=== PATIENT | male | born 1965 | race Caucasian/White ===

== ENCOUNTER 2019-11-06 09:49 | Inpatient (IN) ==
--- NOTE | 2019-11-06 11:46 | DR.EXTPAIN ---
HPI Time seen Time Seen by Provider: 11/06/19 11:44 PCP Primary Care Physician: JUDSON Complaint/Symptoms Chief Complaint Doctor Comments: A 54 y/o male presenting to the ED with c/o an abscess to his Lt. groin. This was first noticed 1 week ago. It came to a head and ruptured. He had been to urgent care centerand was placed on some antibiotics. The infection seen to be spreading over a large area now. Chief Complaint:: PT C/O RISEN TO HIS LT GROIN AREA. PT STATES HE WENT TO [facility] MONDAY AND WAS GIVEN PRESCRIPTIONS ANTIBIOTICS. PT WAS TOLD IF IT WAS NOT ANY BETTER IN A FEW DAYS THAT HE SHOULD BE SEEN AGAIN ABOUT IT. PT'S STATES THERE IS REDNESS AROUND IT. COVID-19 Coronavirus risk:travel/contact w/high risk person: No Has patient experienced Coronavirus symptoms: Yes Coronavirus symptoms experienced: Fever Nurses notes reviewed Nurses Notes Review: Yes Source History Provided: Patient Mode of arrival Mode of Arrival: Ambulatory Timing Onset of Chief Complaint: 11/01/19 Context History of: None Associated signs and symptoms Associated Signs and Symptoms: None PMH PMH Past Medical History: Yes Past Medical History: Diabetes Past Surgical History: No Family History History of Family Medical Conditions: No Social History Does patient currently use any type of tobacco product: Yes Have you used tobacco products in the last 12 months: Yes Type of Tobacco Use: Cigarettes Does any household member use tobacco: Yes Alcohol Use: None Do you use any recreational Drugs:: No Lives With: Spouse Lives Where: Home Travel Risk Coronavirus risk:travel/contact w/high risk person: No Has patient experienced Coronavirus symptoms: Yes Coronavirus symptoms experienced: Fever Infectious screening In the last 2 months have you had wt loss of >10#?: NO Have you had fever, night sweats or hemotysis?: No Have you traveled outside the country in the last 6 months?: No Isolation: Standard ROS Review of Systems Constitutional: No Symptoms Reported Eyes: No Symptoms Reported ENTM: No Symptoms Reported Respiratoy: No Symptoms Reported Cardiovascular: No Symptoms Reported Gastrointestinal/Abdominal: No Symptoms Reported Genitourinary: No Symptoms Reported Neurological: No Symptoms Reported Musculoskeletal: No Symptoms Reported Integumentary: Lesions (Lt. groin) Hematologic/Lymphatic: No Symptoms Reported Endocrine: No Symptoms Reported Psychiatric: No Symptoms Reported PE Vital Signs Vitals: Temperature 97.1 F Pulse Rate 111 Respiratory Rate 18 Blood Pressure 105/67 O2 Sat by Pulse Oximetry 97 General Limitations: No Limitations General Appearance: Alert and In No Apparent Distress Head Head Exam: Normal Inspection, Atraumatic and Normocephalic Eyes Eye exam: Normal Appearance and EOMI ENT ENT Exam: Normal Exam, Normal Oropharynx, Normal External Ear Exam and Mucous Membranes Moist Neck Neck Exam: Normal Inspection, Full ROM and Trachea Midline Chest Chest Inspection: Symmetric Chest Wall Rise Respiratory Respiratory Exam: Normal Lung Sounds Bilat Cardiovascular Cardiovascular Exam: Regular Rate, Normal Rhythm, Normal Heart Sounds, +S1 and +S2 Abdominal Exam Abdominal Exam: Normal Inspection, Normal Bowel Sounds and Soft Lower Extremities Hip/Pelvis Exam: Other (A large, fluctuant and erythematous area over the Lt. groin. There is a small open drainage site) Back Back Exam: Normal Inspection and Full ROM Neurological Neurological Exam: Alert and Oriented X3 Psychiatric Psychiatric Exam: Normal Affect and Normal Mood Skin Skin Exam: Other (Lt. groin findings as described above under the hip exam. ) COURSE Reevaluation 1st: Unchanged Education/Counseling Education/Counseling: Patient, Education and Counseling Educated On: Treatment, Diagnosis, Prognosis and Needs for Follow Up ROR Labs Reviewed Laboratory Results Reviewed?: Yes Result Diagrams: 11/06/19 12:45 11/06/19 12:45 Laboratory: WBC 17.8 X10^3/uL (3.6-10.0) H 11/06/19 12:45 RBC 5.38 X10^6/uL (4.7-6.0) 11/06/19 12:45 Hgb 16.6 g/dL (13.5-18.0) 11/06/19 12:45 Hct 48.7 % (42.0-54.0) 11/06/19 12:45 MCV 90.5 fL (80.0-100.0) 11/06/19 12:45 MCH 30.8 pg (27.0-34.0) 11/06/19 12:45 MCHC 34.0 g/dL (33.0-35.0) 11/06/19 12:45 RDW 13.5 % (11.6-16.5) 11/06/19 12:45 Plt Count 263 X10^3/uL (150.0-450.0) 11/06/19 12:45 MPV 9.1 fL (7.4-11.0) 11/06/19 12:45 Neut % (Auto) 79.1 % (42.0-75.0) H 11/06/19 12:45 Lymph % (Auto) 10.4 % (21.0-51.0) L 11/06/19 12:45 Bradley % (Auto) 9.6 % (0.0-13.0) 11/06/19 12:45 Eos % (Auto) 0.3 % (0.9-2.9) L 11/06/19 12:45 Baso % (Auto) 0.6 % (0.2-1.0) 11/06/19 12:45 Neut # (Auto) 14.1 x10^3/uL (2.2-4.8) H 11/06/19 12:45 Lymph # (Auto) 1.9 X10^3/uL (1.3-2.9) 11/06/19 12:45 Bradley # (Auto) 1.7 x10^3/uL (0.3-0.8) H 11/06/19 12:45 Eos # (Auto) 0.0 x10^3/uL (0.0-0.2) 11/06/19 12:45 Baso # (Auto) 0.1 X10^3/uL (0.0-0.1) 11/06/19 12:45 Absolute Nucleated RBC 0.0 /100WBC 11/06/19 12:45 Sodium 133 mmol/L (136-145) L 11/06/19 12:45 Corrected Sodium 139 mmol/L (136-145) 11/06/19 12:45 Potassium 4.1 mmol/L (3.5-5.1) 11/06/19 12:45 Chloride 97 mmol/L (98-107) L 11/06/19 12:45 Carbon Dioxide 27.2 mmol/L (21-32) 11/06/19 12:45 BUN 10 mg/dL (7-18) 11/06/19 12:45 Creatinine 0.76 mg/dL (0.70-1.30) 11/06/19 12:45 Est GFR (MDRD) Af Amer > 60 (>60) 11/06/19 12:45 Est GFR (MDRD) Non-Af > 60 (>60) 11/06/19 12:45 Glucose 337 mg/dL (65-99) H 11/06/19 12:45 Calcium 8.7 mg/dL (8.5-10.1) 11/06/19 12:45 Corrected Calcium 10.2 mg/dL (8.5-10.1) H 11/06/19 12:45 Total Bilirubin 0.40 mg/dL (0.2-1.0) 11/06/19 12:45 AST 24 Units/L (15-37) 11/06/19 12:45 ALT 28 Units/L (12-78) 11/06/19 12:45 Alkaline Phosphatase 133 Units/L (46-116) H 11/06/19 12:45 Total Protein 6.6 g/dL (6.4-8.2) 11/06/19 12:45 Albumin 2.1 g/dL (3.4-5.0) L 11/06/19 12:45 Globulin 4.5 g/dL (2.5-4.5) 11/06/19 12:45 Albumin/Globulin Ratio 0.5 Ratio (1.1-2.1) L 11/06/19 12:45 Opioid Opioid Risk Tool Age (Laith box if 16-45): No History of Preadolescent Sexual Abuse: No Total: 0 Total Score Risk Category: Low Risk Copyright: Eloy KINCAID predicting aberrant behaviors Diagnosis Discharge Problem: Abscess of groin, left Uncontrolled type 2 diabetes mellitus Qualifiers: Glycemic state: with hyperglycemia Qualified Code(s): E11.65 - Type 2 diabetes mellitus with hyperglycemia Instructions Forms: Excuse From Work Precautions for COVID19 Patient Portal Social Distancing
[2019-11-06] MEDS ORDERED: VANCOMYCIN IV *PREMIX 1 G/200 ML BAG 1 G/200 ML PIGGYBACK IV ONE (12:41)
[2019-11-06] MEDS ORDERED: NS 1000 ML 1,000 ML IV ONE (12:41)
[2019-11-06] MEDS ORDERED: NS 1000 ML 1,000 ML ONE (12:52)
[2019-11-06] MEDS ORDERED: NS 250 ML IV 250 ML IV ONE (12:52)
[2019-11-06] MEDS ORDERED: VANCOMYCIN HCL ONE ×2 (12:52→20:25)
[2019-11-06 12:55] LABS: BASOPHILS # (AUTO) 0.1 X10^3/uL (0.0-0.1); BASOPHILS % (AUTO) 0.6 % (0.2-1.0); EOSINOPHILS % (AUTO) 0.3 % (0.9-2.9); HEMATOCRIT 48.7 % (42.0-54.0); HEMOGLOBIN 16.6 g/dL (13.5-18.0); LYMPHOCYTES # (AUTO) 1.9 X10^3/uL (1.3-2.9); LYMPHOCYTES % (AUTO) 10.4 % (21.0-51.0); MEAN CORPUSCULAR HEMOGLOBIN 30.8 pg (27.0-34.0); MEAN CORPUSCULAR VOLUME 90.5 fL (80.0-100.0); MEAN PLATELET VOLUME 9.1 fL (7.4-11.0); MONOCYTES # (AUTO) 1.7 x10^3/uL (0.3-0.8); MONOCYTES % (AUTO) 9.6 % (0.0-13.0); NEUTROPHILS # (AUTO) 14.1 x10^3/uL (2.2-4.8); NEUTROPHILS % (AUTO) 79.1 % (42.0-75.0); PLATELET COUNT 263 X10^3/uL (150.0-450.0); RED BLOOD COUNT 5.38 X10^6/uL (4.7-6.0); RED CELL DISTRIBUTION WIDTH 13.5 % (11.6-16.5); WHITE BLOOD COUNT 17.8 X10^3/uL (3.6-10.0)
[2019-11-06 13:05] LABS: ALANINE AMINOTRANSFERASE 28 Units/L (12-78); ALBUMIN 2.1 g/dL (3.4-5.0); ALKALINE PHOSPHATASE 133 Units/L (46-116); ASPARTATE AMINO TRANSFERASE 24 Units/L (15-37); BLOOD UREA NITROGEN 10 mg/dL (7-18); CALCIUM 8.7 mg/dL (8.5-10.1); CARBON DIOXIDE 27.2 mmol/L (21-32); CHLORIDE 97 mmol/L (98-107); COR CA(FOR HYPOALB) 10.2 mg/dL (8.5-10.1); COR NA(FOR HYPERGLY) 139 mmol/L (136-145); CREATININE 0.76 mg/dL (0.70-1.30); SODIUM 133 mmol/L (136-145); TOTAL PROTEIN 6.6 g/dL (6.4-8.2); eGFR NON BLACK RACES > 60 (>60)
[2019-11-06] MEDS ORDERED: PHARMACY CONSULT - VANCOMYCIN XX SCH (18:26)
[2019-11-06] MEDS ORDERED: GLUCOPHAGE ONE (20:25)
[2019-11-06] MEDS ORDERED: VANCOMYCIN 1 GRAM PREMIX (ADDVANTAGE) 250 ML IV ONE (20:26)
[2019-11-06] MEDS: GLUCOPHAGE PO SCH ×2 (20:31→21:05)
[2019-11-06] MEDS: NS 1000 ML 1,000 ML IV SCH (20:32)
[2019-11-06] MEDS: VANCOMYCIN HCL 250 MG, VANCOMYCIN HCL 1 G in NS 250 ML IV 250 ML IV SCH (21:06)
[2019-11-07] MEDS: NS 1000 ML 1,000 ML IV SCH ×3 (05:47→19:01)
[2019-11-07] MEDS: VANCOMYCIN HCL 250 MG, VANCOMYCIN HCL 1 G in NS 250 ML IV 250 ML IV SCH (05:47)
[2019-11-07 06:06] LABS: ALANINE AMINOTRANSFERASE 29 Units/L (12-78); ALBUMIN 1.8 g/dL (3.4-5.0); ALKALINE PHOSPHATASE 113 Units/L (46-116); ASPARTATE AMINO TRANSFERASE 27 Units/L (15-37); BLOOD UREA NITROGEN 10 mg/dL (7-18); CALCIUM 8.4 mg/dL (8.5-10.1); CARBON DIOXIDE 22.8 mmol/L (21-32); CHLORIDE 99 mmol/L (98-107); COR CA(FOR HYPOALB) 10.2 mg/dL (8.5-10.1); COR NA(FOR HYPERGLY) 136 mmol/L (136-145); SODIUM 134 mmol/L (136-145); TOTAL PROTEIN 5.9 g/dL (6.4-8.2); eGFR NON BLACK RACES > 60 (>60)
[2019-11-07 06:15] LABS: BASOPHILS # (AUTO) 0.2 X10^3/uL (0.0-0.1); BASOPHILS % (AUTO) 1.3 % (0.2-1.0); EOSINOPHILS # (AUTO) 0.2 x10^3/uL (0.0-0.2); EOSINOPHILS % (AUTO) 1.1 % (0.9-2.9); HEMATOCRIT 44.3 % (42.0-54.0); HEMOGLOBIN 14.9 g/dL (13.5-18.0); LYMPHOCYTES # (AUTO) 2.3 X10^3/uL (1.3-2.9); LYMPHOCYTES % (AUTO) 17.4 % (21.0-51.0); MEAN CORPUSCULAR HEMOGLOBIN 30.8 pg (27.0-34.0); MEAN CORPUSCULAR HGB CONC 33.6 g/dL (33.0-35.0); MEAN CORPUSCULAR VOLUME 91.5 fL (80.0-100.0); MEAN PLATELET VOLUME 9.1 fL (7.4-11.0); MONOCYTES % (AUTO) 7.9 % (0.0-13.0); NEUTROPHILS # (AUTO) 9.6 x10^3/uL (2.2-4.8); NEUTROPHILS % (AUTO) 72.3 % (42.0-75.0); PLATELET COUNT 281 X10^3/uL (150.0-450.0); RED BLOOD COUNT 4.84 X10^6/uL (4.7-6.0); RED CELL DISTRIBUTION WIDTH 13.4 % (11.6-16.5); WHITE BLOOD COUNT 13.3 X10^3/uL (3.6-10.0)
--- NOTE | 2019-11-07 08:48 | DR.H&P ---
H&P History & Physical for Day of: H&P Date: 11/07/19 Chief Complaint Chief Complaint: left groin pain and swelling Allergies Allergies Allergy/AdvReac Type Severity Reaction Status Date / Time No Known Drug Allergies Allergy Verified 11/06/19 10:03 History of Present Illness History of Present Illness: Mr. Gong is a 54 y/o male with a PMH of uncontrolled DM presented with left groin pain and swelling. Patient states he noticed it a week ago and went to [facility] urgent care and he was given Bactrim. He states the pain and swelling kept getting worse so he presented to the ED yesterday. He has not been on any medicines for diabetes recently. He use d to be on metformin and gabapentin but stopped taking them. He does not have a PCP. Denies fever or chills, no N/V/D. He has had skin infections in the past, resolved with oral antibiotics. Er work-up - Labs: WBC: 17 now 13 Glucose: 337 Dr. Rivera was consulted for I&D due to increased left groin redness and swelling. I&D was performed and cultures were sent. He was started on IV vancomycin. He also received regular insulin. Plan: continue IV vancomycin, follow Dr. Rivera's recommendations, follow cultures. Patient was started back on metformin 500mg BID. He refused to have his FS checked last night and did not receive any SSI. Patient does not want to take insulin. Will increase metformin to 1000 mg BID. Will discuss further management with patient since his A1C is > 16%. Past Medical History Past Medical History: Diabetes Past Surgical History Surgical History: Other Family History Family Medical History: Diabetes Mellitus and Cancer Social History Does patient currently use any type of tobacco product: Yes Have you used tobacco products in the last 12 months: Yes Type of Tobacco Use: Cigarettes Does any household member use tobacco: Yes Alcohol Use: None Drug Use: None Prescription drug monitoring program results: PDMP reviewed and no concerns identified Medications Home Medications: No Known Drug Allergies Allergy (Verified 11/06/19 10:03) CONTINUE taking the following medications sulfamethoxazole-trimethoprim 1 tab PO BID 11/06/19 [History] Labs Result Diagrams: 11/07/19 05:10 11/07/19 13:45 Labs: Laboratory WBC 13.3 X10^3/uL (3.6-10.0) H 11/07/19 05:10 RBC 4.84 X10^6/uL (4.7-6.0) 11/07/19 05:10 Hgb 14.9 g/dL (13.5-18.0) 11/07/19 05:10 Hct 44.3 % (42.0-54.0) 11/07/19 05:10 MCV 91.5 fL (80.0-100.0) 11/07/19 05:10 MCH 30.8 pg (27.0-34.0) 11/07/19 05:10 MCHC 33.6 g/dL (33.0-35.0) 11/07/19 05:10 RDW 13.4 % (11.6-16.5) 11/07/19 05:10 Plt Count 281 X10^3/uL (150.0-450.0) 11/07/19 05:10 MPV 9.1 fL (7.4-11.0) 11/07/19 05:10 Neut % (Auto) 72.3 % (42.0-75.0) 11/07/19 05:10 Lymph % (Auto) 17.4 % (21.0-51.0) L 11/07/19 05:10 Kidder % (Auto) 7.9 % (0.0-13.0) 11/07/19 05:10 Eos % (Auto) 1.1 % (0.9-2.9) 11/07/19 05:10 Baso % (Auto) 1.3 % (0.2-1.0) H 11/07/19 05:10 Neut # (Auto) 9.6 x10^3/uL (2.2-4.8) H 11/07/19 05:10 Lymph # (Auto) 2.3 X10^3/uL (1.3-2.9) 11/07/19 05:10 Kidder # (Auto) 1.0 x10^3/uL (0.3-0.8) H 11/07/19 05:10 Eos # (Auto) 0.2 x10^3/uL (0.0-0.2) 11/07/19 05:10 Baso # (Auto) 0.2 X10^3/uL (0.0-0.1) H 11/07/19 05:10 Absolute Nucleated RBC 0.0 /100WBC 11/07/19 05:10 Sodium 134 mmol/L (136-145) L 11/07/19 05:10 Corrected Sodium 136 mmol/L (136-145) 11/07/19 05:10 Potassium 3.8 mmol/L (3.5-5.1) 11/07/19 05:10 Chloride 99 mmol/L (98-107) 11/07/19 05:10 Carbon Dioxide 22.8 mmol/L (21-32) 11/07/19 05:10 BUN 10 mg/dL (7-18) 11/07/19 05:10 Creatinine 0.60 mg/dL (0.70-1.30) L 11/07/19 05:10 Est GFR (MDRD) Af Amer > 60 (>60) 11/07/19 05:10 Est GFR (MDRD) Non-Af > 60 (>60) 11/07/19 05:10 Glucose 197 mg/dL (65-99) H 11/07/19 05:10 POC Glucose (mg/dL) 250 mg/dL (65-99) H 11/07/19 05:26 Calcium 8.4 mg/dL (8.5-10.1) L 11/07/19 05:10 Corrected Calcium 10.2 mg/dL (8.5-10.1) H 11/07/19 05:10 Total Bilirubin 0.40 mg/dL (0.2-1.0) 11/07/19 05:10 AST 27 Units/L (15-37) 11/07/19 05:10 ALT 29 Units/L (12-78) 11/07/19 05:10 Alkaline Phosphatase 113 Units/L (46-116) 11/07/19 05:10 Total Protein 5.9 g/dL (6.4-8.2) L 11/07/19 05:10 Albumin 1.8 g/dL (3.4-5.0) L 11/07/19 05:10 Globulin 4.1 g/dL (2.5-4.5) 11/07/19 05:10 Albumin/Globulin Ratio 0.4 Ratio (1.1-2.1) L 11/07/19 05:10 Review of Systems Constitutional: Chills Eyes: No Symptoms Reported ENT: No Symptoms Reported Respiratory: No Symptoms Reported Cardiovascular: No Symptoms Reported Gastrointestinal: No Symptoms Reported Genitourinary: No Symptoms Reported Musculoskeletal: Leg Pain Skin: Wound Neurological: No Symptoms Reported Physical Exam Vital Signs: Temperature 98.3 F Pulse Rate [Left Brachial] 90 Pulse Rate 111 Respiratory Rate 20 Blood Pressure [Left Arm] 119/71 Blood Pressure 105/67 O2 Sat by Pulse Oximetry 94 Oriented: Normal Eyes: Normal Ear: Normal Nose: Normal Respiratory: Clear Throughout Cardiovascular: Normal Auscultation: Bowel Sounds: Normal Palpation: Normal Tenderness: Normal Skin: Wound and Other (left groin area, dressing with drainage noted ) Musculoskeletal: Normal Psychiatric: Normal Mood Description: Calm Affect: Normal Speech Pattern: Clear and Appropriate Assessment/Plan (1) Abscess of groin, left: Status: Acute (2) Uncontrolled type 2 diabetes mellitus: Qualifiers: Glycemic state: with hyperglycemia Qualified Code(s): E11.65 - Type 2 diabetes mellitus with hyperglycemia Status: Acute Review H&P Reviewed: Yes Patient was examined?: Yes
[2019-11-07] MEDS ORDERED: GLUCOPHAGE ONE ×2 (09:08→17:48)
[2019-11-07] MEDS: GLUCOPHAGE PO SCH ×2 (09:10→17:35)
[2019-11-07] MEDS ORDERED: PHARMACY COMMENT IV SCH (13:15)
[2019-11-07] MEDS: HumuLIN R SC PRN ×2 (13:40→17:35)
[2019-11-07 14:14] LABS: CREATININE 0.61 mg/dL (0.70-1.30); VANCOMYCIN,TROUGH 8.4 ug/mL (15-20)
[2019-11-07] MEDS: VANCOMYCIN HCL 500 MG, VANCOMYCIN HCL 1 G in D5W 250 ML IV 250 ML IV SCH ×2 (14:48→22:25)
[2019-11-07] MEDS: NORCO 5/325 MG TAB PO PRN ×2 (14:49→19:40)
[2019-11-07] MEDS ORDERED: VANCOMYCIN HCL ONE (22:13)
[2019-11-08] MEDS: NS 1000 ML 1,000 ML IV SCH ×3 (02:58→21:04)
[2019-11-08] MEDS: VANCOMYCIN HCL 500 MG, VANCOMYCIN HCL 1 G in D5W 250 ML IV 250 ML IV SCH ×3 (05:41→23:50)
[2019-11-08 06:04] LABS: BLOOD UREA NITROGEN 8 mg/dL (7-18); CALCIUM 8.1 mg/dL (8.5-10.1); CARBON DIOXIDE 26.7 mmol/L (21-32); CHLORIDE 99 mmol/L (98-107); COR NA(FOR HYPERGLY) 136 mmol/L (136-145); CREATININE 0.59 mg/dL (0.70-1.30); SODIUM 134 mmol/L (136-145); eGFR NON BLACK RACES > 60 (>60)
[2019-11-08 06:09] LABS: BASOPHILS # (AUTO) 0.1 X10^3/uL (0.0-0.1); BASOPHILS % (AUTO) 0.6 % (0.2-1.0); EOSINOPHILS # (AUTO) 0.3 x10^3/uL (0.0-0.2); EOSINOPHILS % (AUTO) 2.5 % (0.9-2.9); HEMATOCRIT 40.7 % (42.0-54.0); HEMOGLOBIN 13.6 g/dL (13.5-18.0); LYMPHOCYTES # (AUTO) 1.8 X10^3/uL (1.3-2.9); LYMPHOCYTES % (AUTO) 16.3 % (21.0-51.0); MEAN CORPUSCULAR HEMOGLOBIN 30.4 pg (27.0-34.0); MEAN CORPUSCULAR HGB CONC 33.5 g/dL (33.0-35.0); MEAN CORPUSCULAR VOLUME 90.8 fL (80.0-100.0); MEAN PLATELET VOLUME 8.5 fL (7.4-11.0); MONOCYTES # (AUTO) 1.1 x10^3/uL (0.3-0.8); MONOCYTES % (AUTO) 10.1 % (0.0-13.0); NEUTROPHILS # (AUTO) 7.9 x10^3/uL (2.2-4.8); NEUTROPHILS % (AUTO) 70.5 % (42.0-75.0); PLATELET COUNT 300 X10^3/uL (150.0-450.0); RED BLOOD COUNT 4.48 X10^6/uL (4.7-6.0); RED CELL DISTRIBUTION WIDTH 13.4 % (11.6-16.5); WHITE BLOOD COUNT 11.2 X10^3/uL (3.6-10.0)
[2019-11-08] MEDS: GLUCOPHAGE PO SCH ×2 (06:47→17:22)
[2019-11-08] MEDS ORDERED: GLUCOPHAGE ONE ×2 (06:49→16:10)
--- NOTE | 2019-11-08 08:48 | PCM.PROG ---
Progress Note Progress Note for Day of Date of Exam: 11/08/19 Subjective Subjective: Patient seen at bedside, reports feeling slightly better. Left groin abscess is still draining a bit, pain is somewhat controlled. Denies fever or chills, no N/V/D. Labs: Wound Cx-Gram positive cocci, blood cultures negative WBC trending down to 11.3 Glucose: 185 Plan: continue IV Vancomycin, follow Dr. Rivera's recommendations, continue wound care. Will increase Bethany to 10/325mg q4hr prn. Continue IV fluids. Continue metformin 1000 mg BID, SSI, start Levemir 10 units qHS and volumetric weigher consult. It was discussed in detail that's patient's A1C is elevated. He is willing to try the insulin regimen along with metformin. Patient does work nights and only eats 1 meal a day on most days. He is willing to make lifestyle changes to make sure he is able to eat proper meals and administer insulin while at work. Past Medical Family Social History Past Med/Fam/Surg Hx: No changes since H&P Allergies: Allergies No Known Drug Allergies Allergy (Verified 11/06/19 10:03) Review of Systems ROS: No change since H&P Vital Signs and I&O's Vital Signs: Temperature 98.3 F Pulse Rate [Left Brachial] 94 Pulse Rate 111 Respiratory Rate 20 Blood Pressure [Left Arm] 132/84 Blood Pressure 105/67 O2 Sat by Pulse Oximetry 93 Intake and Output: Intake & Output 11/05/19 11/06/19 11/07/19 11/08/19 23:59 23:59 23:59 23:59 Intake Total 800 / 800 3226 / 3226 222 / 222 Output Total 200 / 200 Balance 800 / 800 3226 / 3226 Physical Exam Oriented: Normal Eyes: Normal Ear: Normal Nose: Normal Respiratory: Normal Cardiovascular: Normal Auscultation: Bowel Sounds: Normal Tenderness: Normal Skin: Wound and Other (left groin area, dressing with drainage noted ) Musculoskeletal: Normal Psychiatric: Normal Mood Description: Calm Affect: Normal Speech Pattern: Clear and Appropriate Laboratory and Diagnostics Result Diagrams: 11/08/19 05:20 11/08/19 05:20 Labs: 11/06/19 12:21 Groin Wound Culture - Preliminary 11/06/19 14:24 Blood Blood Culture - Preliminary 11/06/19 14:18 Blood Blood Culture - Preliminary Laboratory WBC 11.2 X10^3/uL (3.6-10.0) H 11/08/19 05:20 RBC 4.48 X10^6/uL (4.7-6.0) L 11/08/19 05:20 Hgb 13.6 g/dL (13.5-18.0) 11/08/19 05:20 Hct 40.7 % (42.0-54.0) L 11/08/19 05:20 MCV 90.8 fL (80.0-100.0) 11/08/19 05:20 MCH 30.4 pg (27.0-34.0) 11/08/19 05:20 MCHC 33.5 g/dL (33.0-35.0) 11/08/19 05:20 RDW 13.4 % (11.6-16.5) 11/08/19 05:20 Plt Count 300 X10^3/uL (150.0-450.0) 11/08/19 05:20 MPV 8.5 fL (7.4-11.0) 11/08/19 05:20 Neut % (Auto) 70.5 % (42.0-75.0) 11/08/19 05:20 Lymph % (Auto) 16.3 % (21.0-51.0) L 11/08/19 05:20 Love % (Auto) 10.1 % (0.0-13.0) 11/08/19 05:20 Eos % (Auto) 2.5 % (0.9-2.9) 11/08/19 05:20 Baso % (Auto) 0.6 % (0.2-1.0) 11/08/19 05:20 Neut # (Auto) 7.9 x10^3/uL (2.2-4.8) H 11/08/19 05:20 Lymph # (Auto) 1.8 X10^3/uL (1.3-2.9) 11/08/19 05:20 Love # (Auto) 1.1 x10^3/uL (0.3-0.8) H 11/08/19 05:20 Eos # (Auto) 0.3 x10^3/uL (0.0-0.2) H 11/08/19 05:20 Baso # (Auto) 0.1 X10^3/uL (0.0-0.1) 11/08/19 05:20 Absolute Nucleated RBC 0.0 /100WBC 11/08/19 05:20 Sodium 134 mmol/L (136-145) L 11/08/19 05:20 Corrected Sodium 136 mmol/L (136-145) 11/08/19 05:20 Potassium 3.8 mmol/L (3.5-5.1) 11/08/19 05:20 Chloride 99 mmol/L (98-107) 11/08/19 05:20 Carbon Dioxide 26.7 mmol/L (21-32) 11/08/19 05:20 BUN 8 mg/dL (7-18) 11/08/19 05:20 Creatinine 0.59 mg/dL (0.70-1.30) L 11/08/19 05:20 Est GFR (MDRD) Af Amer > 60 (>60) 11/08/19 05:20 Est GFR (MDRD) Non-Af > 60 (>60) 11/08/19 05:20 Glucose 185 mg/dL (65-99) H 11/08/19 05:20 POC Glucose (mg/dL) 176 mg/dL (65-99) H 11/08/19 05:53 Hemoglobin A1c > 16.0 % 11/07/19 05:10 Calcium 8.1 mg/dL (8.5-10.1) L 11/08/19 05:20 Corrected Calcium 10.2 mg/dL (8.5-10.1) H 11/07/19 05:10 Total Bilirubin 0.40 mg/dL (0.2-1.0) 11/07/19 05:10 AST 27 Units/L (15-37) 11/07/19 05:10 ALT 29 Units/L (12-78) 11/07/19 05:10 Alkaline Phosphatase 113 Units/L (46-116) 11/07/19 05:10 Total Protein 5.9 g/dL (6.4-8.2) L 11/07/19 05:10 Albumin 1.8 g/dL (3.4-5.0) L 11/07/19 05:10 Globulin 4.1 g/dL (2.5-4.5) 11/07/19 05:10 Albumin/Globulin Ratio 0.4 Ratio (1.1-2.1) L 11/07/19 05:10 Vancomycin Trough 8.4 ug/mL (15-20) L 11/07/19 13:45 Plan (1) Abscess of groin, left: Status: Acute (2) Uncontrolled type 2 diabetes mellitus: Status: Acute Qualifiers: Glycemic state: with hyperglycemia Qualified Code(s): E11.65 - Type 2 diabetes mellitus with hyperglycemia
[2019-11-08] MEDS ORDERED: STERILE WATER IRRIGATION IR ONE ×2 (10:12→10:14)
[2019-11-08] MEDS ORDERED: HYDROGEN PEROXIDE 3% ONE (10:14)
[2019-11-08] MEDS: HumuLIN R SC PRN (12:10)
[2019-11-08] MEDS ORDERED: PHARMACY COMMENT IV NR (13:30)
[2019-11-08] MEDS: NEURONTIN CAP 100 MG PO SCH ×2 (16:00→21:04)
[2019-11-08] MEDS: NORCO 5/325 MG TAB PO PRN (17:21)
[2019-11-08 17:45] LABS: CREATININE 0.59 mg/dL (0.70-1.30); VANCOMYCIN,TROUGH 7.5 ug/mL (15-20)
[2019-11-08 18:04] VITALS: BMI 28.8
[2019-11-08] MEDS: SNACK - Diabetic Appropriate PO SCH (21:04)
[2019-11-08] MEDS: LEVEMIR SC SCH (21:15)
[2019-11-09] MEDS: NORCO 5/325 MG TAB PO PRN ×2 (04:07→09:34)
[2019-11-09] MEDS: NS 1000 ML 1,000 ML IV SCH ×4 (04:09→18:29)
[2019-11-09] MEDS ORDERED: GLUCOPHAGE ONE ×2 (05:02→16:27)
[2019-11-09] MEDS: VANCOMYCIN HCL 500 MG, VANCOMYCIN HCL 1 G in D5W 250 ML IV 250 ML IV SCH (05:43)
[2019-11-09] MEDS: GLUCOPHAGE PO SCH ×2 (06:30→16:35)
[2019-11-09] MEDS: HumuLIN R SC PRN ×4 (06:32→21:15)
[2019-11-09 06:49] LABS: BLOOD UREA NITROGEN 4 mg/dL (7-18); CALCIUM 8.1 mg/dL (8.5-10.1); CARBON DIOXIDE 26.5 mmol/L (21-32); CHLORIDE 100 mmol/L (98-107); COR NA(FOR HYPERGLY) 138 mmol/L (136-145); SODIUM 136 mmol/L (136-145); eGFR NON BLACK RACES > 60 (>60)
[2019-11-09 06:51] LABS: BASOPHILS # (AUTO) 0.1 X10^3/uL (0.0-0.1); BASOPHILS % (AUTO) 0.5 % (0.2-1.0); EOSINOPHILS # (AUTO) 0.3 x10^3/uL (0.0-0.2); EOSINOPHILS % (AUTO) 2.1 % (0.9-2.9); HEMATOCRIT 40.9 % (42.0-54.0); HEMOGLOBIN 13.6 g/dL (13.5-18.0); LYMPHOCYTES # (AUTO) 1.5 X10^3/uL (1.3-2.9); LYMPHOCYTES % (AUTO) 12.8 % (21.0-51.0); MEAN CORPUSCULAR HEMOGLOBIN 30.4 pg (27.0-34.0); MEAN CORPUSCULAR HGB CONC 33.3 g/dL (33.0-35.0); MEAN CORPUSCULAR VOLUME 91.2 fL (80.0-100.0); MEAN PLATELET VOLUME 8.5 fL (7.4-11.0); MONOCYTES % (AUTO) 8.4 % (0.0-13.0); NEUTROPHILS % (AUTO) 76.2 % (42.0-75.0); PLATELET COUNT 318 X10^3/uL (150.0-450.0); RED BLOOD COUNT 4.48 X10^6/uL (4.7-6.0); RED CELL DISTRIBUTION WIDTH 13.1 % (11.6-16.5); WHITE BLOOD COUNT 11.9 X10^3/uL (3.6-10.0)
[2019-11-09] MEDS ORDERED: VANCOMYCIN HCL IV SCH ×6 (09:30→14:00)
[2019-11-09] MEDS ORDERED: NS IV SCH ×6 (09:30→14:00)
[2019-11-09] MEDS: NEURONTIN CAP 100 MG PO SCH ×2 (09:33→21:03)
--- NOTE | 2019-11-09 10:27 | DR.PROGNOT ---
Hospital Progress Notes - Progress Note for Day of: Progress Note Date: 11/09/19 - Chief Complaint Chief Complaint: feeling better with less drainage and less pain . packing was changed . initial culture is Gram + Cocci. BS is 190 this am . afebrile - Past Medical Family Social History Past Med/Fam/Surg Hx: No changes since H&P Allergies: Allergies No Known Drug Allergies Allergy (Verified 11/06/19 10:03) - Review Of Systems ROS: No change since H&P - Vital Signs Vital Signs: Temperature 98.3 F Pulse Rate [Left Brachial] 82 Pulse Rate 111 Respiratory Rate 19 Blood Pressure [Left Arm] 118/60 Blood Pressure 105/67 O2 Sat by Pulse Oximetry 96 - Physical Exam Oriented: Normal Eyes: Normal Ear: Normal Nose: Normal Respiratory: Normal Cardiovascular: Normal GI:Auscultation: Normal GI:Palpation: Normal GI: Tenderness: Normal Skin: Wound, Other (still has large area of erythema lateral groin with less edema ) Musculoskeletal: Normal Psychiatric: Normal Mood Description: Calm Affect: Normal Speech Pattern: Clear, Appropriate - Laboratory and Diagnostics Result Diagrams: 11/09/19 06:05 11/09/19 06:05 Labs: 11/06/19 12:21 Groin Wound Culture - Preliminary 11/06/19 14:24 Blood Blood Culture - Preliminary 11/06/19 14:18 Blood Blood Culture - Preliminary Laboratory WBC 11.9 X10^3/uL (3.6-10.0) H 11/09/19 06:05 RBC 4.48 X10^6/uL (4.7-6.0) L 11/09/19 06:05 Hgb 13.6 g/dL (13.5-18.0) 11/09/19 06:05 Hct 40.9 % (42.0-54.0) L 11/09/19 06:05 MCV 91.2 fL (80.0-100.0) 11/09/19 06:05 MCH 30.4 pg (27.0-34.0) 11/09/19 06:05 MCHC 33.3 g/dL (33.0-35.0) 11/09/19 06:05 RDW 13.1 % (11.6-16.5) 11/09/19 06:05 Plt Count 318 X10^3/uL (150.0-450.0) 11/09/19 06:05 MPV 8.5 fL (7.4-11.0) 11/09/19 06:05 Neut % (Auto) 76.2 % (42.0-75.0) H 11/09/19 06:05 Lymph % (Auto) 12.8 % (21.0-51.0) L 11/09/19 06:05 Beadle % (Auto) 8.4 % (0.0-13.0) 11/09/19 06:05 Eos % (Auto) 2.1 % (0.9-2.9) 11/09/19 06:05 Baso % (Auto) 0.5 % (0.2-1.0) 11/09/19 06:05 Neut # (Auto) 9.0 x10^3/uL (2.2-4.8) H 11/09/19 06:05 Lymph # (Auto) 1.5 X10^3/uL (1.3-2.9) 11/09/19 06:05 Beadle # (Auto) 1.0 x10^3/uL (0.3-0.8) H 11/09/19 06:05 Eos # (Auto) 0.3 x10^3/uL (0.0-0.2) H 11/09/19 06:05 Baso # (Auto) 0.1 X10^3/uL (0.0-0.1) 11/09/19 06:05 Absolute Nucleated RBC 0.0 /100WBC 11/09/19 06:05 Sodium 136 mmol/L (136-145) 11/09/19 06:05 Corrected Sodium 138 mmol/L (136-145) 11/09/19 06:05 Potassium 3.6 mmol/L (3.5-5.1) 11/09/19 06:05 Chloride 100 mmol/L (98-107) 11/09/19 06:05 Carbon Dioxide 26.5 mmol/L (21-32) 11/09/19 06:05 BUN 4 mg/dL (7-18) L 11/09/19 06:05 Creatinine 0.50 mg/dL (0.70-1.30) L 11/09/19 06:05 Est GFR (MDRD) Af Amer > 60 (>60) 08/22/20 06:05 Est GFR (MDRD) Non-Af > 60 (>60) 11/09/19 06:05 Glucose 190 mg/dL (65-99) H 11/09/19 06:05 POC Glucose (mg/dL) 183 mg/dL (65-99) H 11/09/19 05:30 Hemoglobin A1c > 16.0 % 11/07/19 05:10 Calcium 8.1 mg/dL (8.5-10.1) L 11/09/19 06:05 Corrected Calcium 10.2 mg/dL (8.5-10.1) H 11/07/19 05:10 Total Bilirubin 0.40 mg/dL (0.2-1.0) 11/07/19 05:10 AST 27 Units/L (15-37) 11/07/19 05:10 ALT 29 Units/L (12-78) 11/07/19 05:10 Alkaline Phosphatase 113 Units/L (46-116) 11/07/19 05:10 Total Protein 5.9 g/dL (6.4-8.2) L 11/07/19 05:10 Albumin 1.8 g/dL (3.4-5.0) L 11/07/19 05:10 Globulin 4.1 g/dL (2.5-4.5) 11/07/19 05:10 Albumin/Globulin Ratio 0.4 Ratio (1.1-2.1) L 11/07/19 05:10 Vancomycin Trough 7.5 ug/mL (15-20) L 11/08/19 16:56 - Assessment and Plan 1: large abscess Lt groin ,S/P I&D with packing . DM poorly controlled at home . same local care with irrigation and packing . IV Vancomycin. diabetic control . - Problem Patient Problems: Patient Problems Abscess of groin, left (Acute) L02.214 Uncontrolled type 2 diabetes mellitus (Acute) E11.65
--- NOTE | 2019-11-09 11:46 | PCM.PROG ---
Progress Note - Progress Note for Day of Date of Exam: 11/09/19 - Subjective Subjective: IN A 54 YEAR OLD PATIENT OF AND . HE IS BEING TREATED FOR A GROIN ABSCESS AND UNCONTROLLED DIABETES. PERFORMED AN I&D ON 11/05 AND PACKED WOUND WITH IODIFORM. TODAY, HE IS ALERT AND OREINTED, LYING IN BED ON MORNING ROUNDS. HE REPORTS PAIN AND SWELLING TO THE GROIN, OTHERWISE, DENIES COMPLAINTS. ON EXAMINATION, HEART IS REGULAR IN RATE AND RHYTHM. BILATERAL LUNGS ARE NOTED WITH DIMINISHED LUNG SOUNDS THROUGHOUT. ABDOMEN IS ROUND, SOFT, AND NON-TENDER WITH NORMAL BOWEL SOUNDS NOTED IN ALL QUADRANTS. LEFT GROIN IS NOTED WITH ERYTHEMA AND EDEMA. HIS VITALS THIS MORNING ARE: 98.3-82-18-96%-118/60. LABS WERE OBTAINED. ABNORMAL LAB VALUES INCLUDE THE FOLLOWING: WBC 11.9, RBC 4.48, HCT 40.9, BUN 4, CREATININE 0.50, GLUCOSE 190, CALCIUM 8.1. BLOOD AND WOUND CULTURES ARE PENDING. HE IS CURRENTLY RECEIVING NS AT 125 ML/HR, VANCOMYCIN 1G IV TID, NORCO 5/325 2 TABS PO Q4H PRN, LEVEMIR 10 UNITS SC HS, HUMULIN R SLIDING SCALE, METFORMIN 1G PO BID. WE WILL CONTINUE WITH CURRENT PLAN OF CARE AND WOUND CARE TODAY. OTHERWISE, WE WILL FOLLOW UP WITH AM LABS AND CONTINUE TO MONITOR. - Past Medical Family Social History Past Med/Fam/Surg Hx: No changes since H&P Allergies: Allergies No Known Drug Allergies Allergy (Verified 11/06/19 10:03) - Review of Systems ROS: No change since H&P - Vital Signs and I&O's Vital Signs: Temperature 98.3 F Pulse Rate [Left Brachial] 82 Pulse Rate 111 Respiratory Rate 20 Blood Pressure [Left Arm] 118/60 Blood Pressure 105/67 O2 Sat by Pulse Oximetry 96 Intake and Output: Intake & Output 11/06/19 11/07/19 11/08/19 11/09/19 11:59 11:59 11:59 11:59 Intake Total 1704 / 1704 2544 / 2544 4023 / 4023 Output Total 200 / 200 Balance 1704 / 1704 2344 / 2344 4023 / 4023 - Physical Exam Oriented: Normal Eyes: Normal Ear: Normal Nose: Normal Respiratory: Normal Cardiovascular: Normal : Normal Auscultation: Bowel Sounds: Normal Palpation: Normal Tenderness: Normal Skin: Wound, Other (still has large area of erythema lateral groin with edema ) Musculoskeletal: Normal Psychiatric: Normal Mood Description: Calm Affect: Normal Speech Pattern: Clear, Appropriate - Laboratory and Diagnostics Result Diagrams: 11/09/19 06:05 11/09/19 06:05 Labs: 11/06/19 12:21 Groin Wound Culture - Preliminary 11/06/19 14:24 Blood Blood Culture - Preliminary 11/06/19 14:18 Blood Blood Culture - Preliminary Laboratory WBC 11.9 X10^3/uL (3.6-10.0) H 11/09/19 06:05 RBC 4.48 X10^6/uL (4.7-6.0) L 11/09/19 06:05 Hgb 13.6 g/dL (13.5-18.0) 11/09/19 06:05 Hct 40.9 % (42.0-54.0) L 11/09/19 06:05 MCV 91.2 fL (80.0-100.0) 11/09/19 06:05 MCH 30.4 pg (27.0-34.0) 11/09/19 06:05 MCHC 33.3 g/dL (33.0-35.0) 11/09/19 06:05 RDW 13.1 % (11.6-16.5) 11/09/19 06:05 Plt Count 318 X10^3/uL (150.0-450.0) 11/09/19 06:05 MPV 8.5 fL (7.4-11.0) 11/09/19 06:05 Neut % (Auto) 76.2 % (42.0-75.0) H 11/09/19 06:05 Lymph % (Auto) 12.8 % (21.0-51.0) L 11/09/19 06:05 [place] % (Auto) 8.4 % (0.0-13.0) 11/09/19 06:05 Eos % (Auto) 2.1 % (0.9-2.9) 11/09/19 06:05 Baso % (Auto) 0.5 % (0.2-1.0) 11/09/19 06:05 Neut # (Auto) 9.0 x10^3/uL (2.2-4.8) H 11/09/19 06:05 Lymph # (Auto) 1.5 X10^3/uL (1.3-2.9) 11/09/19 06:05 [place] # (Auto) 1.0 x10^3/uL (0.3-0.8) H 11/09/19 06:05 Eos # (Auto) 0.3 x10^3/uL (0.0-0.2) H 11/09/19 06:05 Baso # (Auto) 0.1 X10^3/uL (0.0-0.1) 11/09/19 06:05 Absolute Nucleated RBC 0.0 /100WBC 11/09/19 06:05 Sodium 136 mmol/L (136-145) 11/09/19 06:05 Corrected Sodium 138 mmol/L (136-145) 11/09/19 06:05 Potassium 3.6 mmol/L (3.5-5.1) 11/09/19 06:05 Chloride 100 mmol/L (98-107) 11/09/19 06:05 Carbon Dioxide 26.5 mmol/L (21-32) 11/09/19 06:05 BUN 4 mg/dL (7-18) L 11/09/19 06:05 Creatinine 0.50 mg/dL (0.70-1.30) L 11/09/19 06:05 Est GFR (MDRD) Af Amer > 60 (>60) 11/09/19 06:05 Est GFR (MDRD) Non-Af > 60 (>60) 11/09/19 06:05 Glucose 190 mg/dL (65-99) H 11/09/19 06:05 POC Glucose (mg/dL) 183 mg/dL (65-99) H 11/09/19 05:30 Hemoglobin A1c > 16.0 % 11/07/19 05:10 Calcium 8.1 mg/dL (8.5-10.1) L 11/09/19 06:05 Corrected Calcium 10.2 mg/dL (8.5-10.1) H 11/07/19 05:10 Total Bilirubin 0.40 mg/dL (0.2-1.0) 11/07/19 05:10 AST 27 Units/L (15-37) 11/07/19 05:10 ALT 29 Units/L (12-78) 11/07/19 05:10 Alkaline Phosphatase 113 Units/L (46-116) 11/07/19 05:10 Total Protein 5.9 g/dL (6.4-8.2) L 11/07/19 05:10 Albumin 1.8 g/dL (3.4-5.0) L 11/07/19 05:10 Globulin 4.1 g/dL (2.5-4.5) 11/07/19 05:10 Albumin/Globulin Ratio 0.4 Ratio (1.1-2.1) L 11/07/19 05:10 Vancomycin Trough 7.5 ug/mL (15-20) L 11/08/19 16:56 - Plan (1) Abscess of groin, left Status: Acute (2) Uncontrolled type 2 diabetes mellitus Status: Acute Qualifiers: Glycemic state: with hyperglycemia Qualified Code(s): E11.65 - Type 2 diabetes mellitus with hyperglycemia
[2019-11-09] MEDS: VANCOMYCIN HCL 500 MG, VANCOMYCIN HCL 1 G in NS 250 ML IV 250 ML IV SCH ×2 (13:53→21:03)
[2019-11-09] MEDS ORDERED: D5W IV SCH ×4 (14:00)
[2019-11-09] MEDS: SNACK - Diabetic Appropriate PO SCH (21:03)
[2019-11-09] MEDS: LEVEMIR SC SCH (21:14)
[2019-11-10] MEDS ORDERED: GLUCOPHAGE ONE ×2 (04:47→16:46)
[2019-11-10] MEDS: NS 1000 ML 1,000 ML IV SCH ×3 (05:24→18:35)
[2019-11-10] MEDS: NORCO 5/325 MG TAB PO PRN ×2 (05:25→09:26)
[2019-11-10] MEDS: VANCOMYCIN HCL 500 MG, VANCOMYCIN HCL 1 G in NS 250 ML IV 250 ML IV SCH ×3 (05:26→21:14)
[2019-11-10] MEDS: HumuLIN R SC PRN ×4 (06:19→20:20)
[2019-11-10] MEDS: GLUCOPHAGE PO SCH ×2 (06:19→16:58)
[2019-11-10 06:44] LABS: BASOPHILS # (AUTO) 0.1 X10^3/uL (0.0-0.1); BASOPHILS % (AUTO) 0.6 % (0.2-1.0); EOSINOPHILS # (AUTO) 0.2 x10^3/uL (0.0-0.2); HEMOGLOBIN 13.3 g/dL (13.5-18.0); LYMPHOCYTES # (AUTO) 1.9 X10^3/uL (1.3-2.9); LYMPHOCYTES % (AUTO) 19.1 % (21.0-51.0); MEAN CORPUSCULAR HEMOGLOBIN 31.1 pg (27.0-34.0); MEAN CORPUSCULAR VOLUME 91.5 fL (80.0-100.0); MEAN PLATELET VOLUME 8.8 fL (7.4-11.0); MONOCYTES # (AUTO) 0.9 x10^3/uL (0.3-0.8); MONOCYTES % (AUTO) 9.3 % (0.0-13.0); NEUTROPHILS # (AUTO) 6.8 x10^3/uL (2.2-4.8); PLATELET COUNT 361 X10^3/uL (150.0-450.0); RED BLOOD COUNT 4.26 X10^6/uL (4.7-6.0); RED CELL DISTRIBUTION WIDTH 13.1 % (11.6-16.5); WHITE BLOOD COUNT 9.9 X10^3/uL (3.6-10.0)
[2019-11-10 06:46] LABS: BLOOD UREA NITROGEN 3 mg/dL (7-18); CALCIUM 8.2 mg/dL (8.5-10.1); CARBON DIOXIDE 27.6 mmol/L (21-32); CHLORIDE 103 mmol/L (98-107); COR NA(FOR HYPERGLY) 139 mmol/L (136-145); SODIUM 136 mmol/L (136-145); eGFR NON BLACK RACES > 60 (>60)
[2019-11-10 06:47] LABS: VANCOMYCIN,TROUGH 17.8 ug/mL (15-20)
[2019-11-10] MEDS: NEURONTIN CAP 100 MG PO SCH ×2 (08:35→20:17)
[2019-11-10 13:50] LABS: CREATININE 0.59 mg/dL (0.70-1.30); VANCOMYCIN,TROUGH 11.6 ug/mL (15-20)
[2019-11-10] MEDS: SNACK - Diabetic Appropriate PO SCH (20:16)
[2019-11-10] MEDS: LEVEMIR SC SCH (20:17)
--- NOTE | 2019-11-10 22:40 | PCM.PROG ---
Progress Note - Progress Note for Day of Date of Exam: 11/10/19 - Subjective Subjective: IN A 54 YEAR OLD PATIENT OF AND . HE IS BEING TREATED FOR A GROIN ABSCESS AND UNCONTROLLED DIABETES. PERFORMED AN I&D ON 11/05 AND PACKED WOUND WITH IODIFORM. TODAY, HE IS ALERT AND ORIENTED, LYING IN BED ON MORNING ROUNDS. HE REPORTS PAIN AND SWELLING TO THE GROIN, OTHERWISE, DENIES COMPLAINTS. ON EXAMINATION, HEART IS REGULAR IN RATE AND RHYTHM. BILATERAL LUNGS ARE NOTED WITH DIMINISHED LUNG SOUNDS THROUGHOUT. ABDOMEN IS ROUND, SOFT, AND NON-TENDER WITH NORMAL BOWEL SOUNDS NOTED IN ALL QUADRANTS. LEFT GROIN IS NOTED WITH ERYTHEMA AND EDEMA. HIS VITALS THIS MORNING ARE: 98.0-82-18-97%-132/70. LABS WERE OBTAINED. ABNORMAL LAB VALUES INCLUDE THE FOLLOWING: RBC 4.26, HGB 13.3, HCT 39.0, BUN 3, CREATININE 0.60, GLUCOSE 207, CALCIUM 8.2. BLOOD AND WOUND CULTURES ARE PENDING. HE IS CURRENTLY RECEIVING NS AT 125 ML/HR, VANCOMYCIN 1G IV TID, NORCO 5/325 2 TABS PO Q4H PRN, LEVEMIR 10 UNITS SC HS, HUMULIN R SLIDING SCALE, METFORMIN 1G PO BID. WE WILL CONTINUE WITH CURRENT PLAN OF CARE AND WOUND CARE TODAY. OTHERWISE, WE WILL FOLLOW UP WITH AM LABS AND CONTINUE TO MONITOR. - Past Medical Family Social History Past Med/Fam/Surg Hx: No changes since H&P Allergies: Allergies No Known Drug Allergies Allergy (Verified 11/06/19 10:03) - Review of Systems ROS: No change since H&P - Vital Signs and I&O's Vital Signs: Temperature 100.6 F Pulse Rate [Left Brachial] 83 Pulse Rate 111 Respiratory Rate 20 Blood Pressure [Left Arm] 128/72 Blood Pressure 105/67 O2 Sat by Pulse Oximetry 96 Intake and Output: Intake & Output 11/08/19 11/09/19 11/10/19 11/11/19 11:59 11:59 11:59 11:59 Intake Total 2544 / 2544 4023 / 4023 4448 / 4448 1764 / 1764 Output Total 200 / 200 Balance 2344 / 2344 4023 / 4023 4448 / 4448 1764 / 1764 - Physical Exam Oriented: Normal Eyes: Normal Ear: Normal Nose: Normal Respiratory: Normal Cardiovascular: Normal : Normal Auscultation: Bowel Sounds: Normal Tenderness: Normal Skin: Wound, Other (still has large area of erythema lateral groin with edema ) Musculoskeletal: Normal Psychiatric: Normal Mood Description: Calm Affect: Normal Speech Pattern: Clear, Appropriate - Laboratory and Diagnostics Result Diagrams: 11/10/19 05:45 11/10/19 13:20 Labs: 11/06/19 12:21 Groin Wound Culture - Preliminary 11/06/19 14:24 Blood Blood Culture - Preliminary 11/06/19 14:18 Blood Blood Culture - Preliminary Laboratory WBC 9.9 X10^3/uL (3.6-10.0) 11/10/19 05:45 RBC 4.26 X10^6/uL (4.7-6.0) L 11/10/19 05:45 Hgb 13.3 g/dL (13.5-18.0) L 11/10/19 05:45 Hct 39.0 % (42.0-54.0) L 11/10/19 05:45 MCV 91.5 fL (80.0-100.0) 11/10/19 05:45 MCH 31.1 pg (27.0-34.0) 11/10/19 05:45 MCHC 34.0 g/dL (33.0-35.0) 11/10/19 05:45 RDW 13.1 % (11.6-16.5) 11/10/19 05:45 Plt Count 361 X10^3/uL (150.0-450.0) 11/10/19 05:45 MPV 8.8 fL (7.4-11.0) 11/10/19 05:45 Neut % (Auto) 69.0 % (42.0-75.0) 11/10/19 05:45 Lymph % (Auto) 19.1 % (21.0-51.0) L 11/10/19 05:45 [place] % (Auto) 9.3 % (0.0-13.0) 11/10/19 05:45 Eos % (Auto) 2.0 % (0.9-2.9) 11/10/19 05:45 Baso % (Auto) 0.6 % (0.2-1.0) 11/10/19 05:45 Neut # (Auto) 6.8 x10^3/uL (2.2-4.8) H 11/10/19 05:45 Lymph # (Auto) 1.9 X10^3/uL (1.3-2.9) 11/10/19 05:45 [place] # (Auto) 0.9 x10^3/uL (0.3-0.8) H 11/10/19 05:45 Eos # (Auto) 0.2 x10^3/uL (0.0-0.2) 11/10/19 05:45 Baso # (Auto) 0.1 X10^3/uL (0.0-0.1) 11/10/19 05:45 Absolute Nucleated RBC 0.1 /100WBC 11/10/19 05:45 Sodium 136 mmol/L (136-145) 11/10/19 05:45 Corrected Sodium 139 mmol/L (136-145) 11/10/19 05:45 Potassium 4.1 mmol/L (3.5-5.1) 11/10/19 05:45 Chloride 103 mmol/L (98-107) 11/10/19 05:45 Carbon Dioxide 27.6 mmol/L (21-32) 11/10/19 05:45 BUN 3 mg/dL (7-18) L 11/10/19 05:45 Creatinine 0.59 mg/dL (0.70-1.30) L 11/10/19 13:20 Est GFR (MDRD) Af Amer > 60 (>60) 11/10/19 05:45 Est GFR (MDRD) Non-Af > 60 (>60) 11/10/19 05:45 Glucose 207 mg/dL (65-99) H 11/10/19 05:45 POC Glucose (mg/dL) 229 mg/dL (65-99) H 11/10/19 19:25 Hemoglobin A1c > 16.0 % 11/07/19 05:10 Calcium 8.2 mg/dL (8.5-10.1) L 11/10/19 05:45 Corrected Calcium 10.2 mg/dL (8.5-10.1) H 11/07/19 05:10 Total Bilirubin 0.40 mg/dL (0.2-1.0) 11/07/19 05:10 AST 27 Units/L (15-37) 11/07/19 05:10 ALT 29 Units/L (12-78) 11/07/19 05:10 Alkaline Phosphatase 113 Units/L (46-116) 11/07/19 05:10 Total Protein 5.9 g/dL (6.4-8.2) L 11/07/19 05:10 Albumin 1.8 g/dL (3.4-5.0) L 11/07/19 05:10 Globulin 4.1 g/dL (2.5-4.5) 11/07/19 05:10 Albumin/Globulin Ratio 0.4 Ratio (1.1-2.1) L 11/07/19 05:10 Vancomycin Trough 11.6 ug/mL (-20) L 11/10/19 13:20 - Plan (1) Abscess of groin, left Status: Acute (2) Uncontrolled type 2 diabetes mellitus Status: Acute Qualifiers: Glycemic state: with hyperglycemia Qualified Code(s): E11.65 - Type 2 diabetes mellitus with hyperglycemia
[2019-11-11] MEDS: NS 1000 ML 1,000 ML IV SCH ×2 (03:25→10:25)
[2019-11-11] MEDS: VANCOMYCIN HCL 500 MG, VANCOMYCIN HCL 1 G in NS 250 ML IV 250 ML IV SCH (05:37)
[2019-11-11] MEDS: NORCO 5/325 MG TAB PO PRN (05:40)
[2019-11-11] MEDS ORDERED: GLUCOPHAGE ONE (05:51)
[2019-11-11] MEDS: GLUCOPHAGE PO SCH (06:14)
[2019-11-11] MEDS: HumuLIN R SC PRN (06:15)
[2019-11-11 06:58] LABS: BASOPHILS # (AUTO) 0.1 X10^3/uL (0.0-0.1); EOSINOPHILS # (AUTO) 0.2 x10^3/uL (0.0-0.2); EOSINOPHILS % (AUTO) 2.4 % (0.9-2.9); HEMATOCRIT 40.4 % (42.0-54.0); HEMOGLOBIN 13.9 g/dL (13.5-18.0); LYMPHOCYTES # (AUTO) 2.1 X10^3/uL (1.3-2.9); MEAN CORPUSCULAR HEMOGLOBIN 31.1 pg (27.0-34.0); MEAN CORPUSCULAR HGB CONC 34.3 g/dL (33.0-35.0); MEAN CORPUSCULAR VOLUME 90.6 fL (80.0-100.0); MEAN PLATELET VOLUME 8.6 fL (7.4-11.0); MONOCYTES # (AUTO) 0.8 x10^3/uL (0.3-0.8); MONOCYTES % (AUTO) 8.7 % (0.0-13.0); NEUTROPHILS # (AUTO) 6.1 x10^3/uL (2.2-4.8); NEUTROPHILS % (AUTO) 65.9 % (42.0-75.0); PLATELET COUNT 394 X10^3/uL (150.0-450.0); RED BLOOD COUNT 4.46 X10^6/uL (4.7-6.0); RED CELL DISTRIBUTION WIDTH 13.2 % (11.6-16.5); WHITE BLOOD COUNT 9.3 X10^3/uL (3.6-10.0)
[2019-11-11 06:59] LABS: ALANINE AMINOTRANSFERASE 25 Units/L (12-78); ALBUMIN 1.9 g/dL (3.4-5.0); ALKALINE PHOSPHATASE 85 Units/L (46-116); ASPARTATE AMINO TRANSFERASE 17 Units/L (15-37); BLOOD UREA NITROGEN 3 mg/dL (7-18); CALCIUM 8.4 mg/dL (8.5-10.1); CARBON DIOXIDE 27.2 mmol/L (21-32); CHLORIDE 104 mmol/L (98-107); COR CA(FOR HYPOALB) 10.1 mg/dL (8.5-10.1); COR NA(FOR HYPERGLY) 139 mmol/L (136-145); CREATININE 0.53 mg/dL (0.70-1.30); SODIUM 137 mmol/L (136-145); TOTAL PROTEIN 5.9 g/dL (6.4-8.2); eGFR NON BLACK RACES > 60 (>60)
[2019-11-11] MEDS: NEURONTIN CAP 100 MG PO SCH (08:21)
--- NOTE | 2019-11-11 12:20 | W.DIS.FURT ---
Summary of Discharge Discharge Summary of Date Date of Exam: 11/11/19 Admission Date Date of Admission: 11/06/19 Admission Diagnosis Hospital Course: Mr. Gong is a 54 y/o male with a PMH of uncontrolled DM presented with left groin pain and swelling. Patient states he noticed it a week ago and went to [facility] urgent care and he was given Bactrim. He states the pain and swelling kept getting worse so he presented to the ED . He has not been on any medicines for diabetes recently. He used to be on metformin and gabapentin but stopped taking them. He does not have a PCP. Denies fever or chills, no N/V/D. He has had skin infections in the past, resolved with oral antibiotics. ER work- up showed elevated WBC and glucose. Dr. Rivera was consulted and performed an I&D due to increased redness and drainage. Wound and blood cultures were sent. He was started on IV fluids and Vancomycin. Daily dressing changes were done. Wound Cx grew group B strep, blood Cx remained negative. His A1C > 16 so patient was advised to be on insulin at home. His metformin was increased to 1000 mg BID. He was sent on Novolog 70/30 10 units BID. Patient will f/u with Dr. Rivera and me in 3-5 days. Vital Signs: Vital Signs (72 hours) 11/08/19 16:00 11/08/19 17:21 11/08/19 18:21 Temperature 97.7 F Pulse Rate [Left Brachial] 76 Respiratory Rate 18 18 20 Blood Pressure [Left Arm] 132/76 O2 Sat by Pulse Oximetry 93 L 11/08/19 20:00 11/09/19 00:00 11/09/19 04:00 Temperature 97.7 F 98.0 F 98.2 F Pulse Rate [Left Brachial] 77 83 77 Respiratory Rate 18 18 16 Blood Pressure [Left Arm] 133/67 131/69 133/73 O2 Sat by Pulse Oximetry 97 97 97 11/09/19 04:07 11/09/19 05:07 11/09/19 08:00 Temperature 98.3 F Pulse Rate [Left Brachial] 82 Respiratory Rate 20 20 18 Blood Pressure [Left Arm] 118/60 O2 Sat by Pulse Oximetry 96 11/09/19 09:34 11/09/19 10:34 11/09/19 12:00 Temperature 99.2 F Pulse Rate [Left Brachial] 72 Respiratory Rate 19 20 18 Blood Pressure [Left Arm] 96/56 O2 Sat by Pulse Oximetry 96 11/09/19 16:00 11/09/19 20:00 11/10/19 00:00 Temperature 98.2 F 99.1 F 98.1 F Pulse Rate [Left Brachial] 73 95 H 80 Respiratory Rate 18 16 16 Blood Pressure [Left Arm] 119/63 136/77 137/74 O2 Sat by Pulse Oximetry 96 96 98 11/10/19 04:00 11/10/19 05:25 11/10/19 06:25 Temperature 98.3 F Pulse Rate [Left Brachial] 79 Respiratory Rate 18 22 20 Blood Pressure [Left Arm] 122/71 O2 Sat by Pulse Oximetry 97 11/10/19 08:00 11/10/19 09:26 11/10/19 10:26 Temperature 98.0 F Pulse Rate [Left Brachial] 82 Respiratory Rate 18 21 18 Blood Pressure [Left Arm] 132/70 O2 Sat by Pulse Oximetry 97 11/10/19 12:00 11/10/19 16:00 11/10/19 20:00 Temperature 98.0 F 97.8 F 100.6 F H Pulse Rate [Left Brachial] 110 H 77 83 Respiratory Rate 20 20 20 Blood Pressure [Left Arm] 122/69 143/78 128/72 O2 Sat by Pulse Oximetry 99 98 96 11/11/19 00:00 11/11/19 04:00 11/11/19 05:40 Temperature 98.0 F 97.9 F Pulse Rate [Left Brachial] 79 77 Respiratory Rate 22 18 20 Blood Pressure [Left Arm] 118/64 126/72 O2 Sat by Pulse Oximetry 94 L 97 11/11/19 06:40 11/11/19 07:51 Temperature 97.8 F Pulse Rate [Left Brachial] 74 Respiratory Rate 20 20 Blood Pressure [Left Arm] 108/62 O2 Sat by Pulse Oximetry 96 Labs: Laboratory Last Values WBC 9.3 X10^3/uL (3.6-10.0) 11/11/19 05:35 RBC 4.46 X10^6/uL (4.7-6.0) L 11/11/19 05:35 Hgb 13.9 g/dL (13.5-18.0) 11/11/19 05:35 Hct 40.4 % (42.0-54.0) L 11/11/19 05:35 MCV 90.6 fL (80.0-100.0) 11/11/19 05:35 MCH 31.1 pg (27.0-34.0) 11/11/19 05:35 MCHC 34.3 g/dL (33.0-35.0) 11/11/19 05:35 RDW 13.2 % (11.6-16.5) 11/11/19 05:35 Plt Count 394 X10^3/uL (150.0-450.0) 11/11/19 05:35 MPV 8.6 fL (7.4-11.0) 11/11/19 05:35 Neut % (Auto) 65.9 % (42.0-75.0) 11/11/19 05:35 Lymph % (Auto) 22.0 % (21.0-51.0) 11/11/19 05:35 [place] % (Auto) 8.7 % (0.0-13.0) 11/11/19 05:35 Eos % (Auto) 2.4 % (0.9-2.9) 11/11/19 05:35 Baso % (Auto) 1.0 % (0.2-1.0) 11/11/19 05:35 Neut # (Auto) 6.1 x10^3/uL (2.2-4.8) H 11/11/19 05:35 Lymph # (Auto) 2.1 X10^3/uL (1.3-2.9) 11/11/19 05:35 [place] # (Auto) 0.8 x10^3/uL (0.3-0.8) 11/11/19 05:35 Eos # (Auto) 0.2 x10^3/uL (0.0-0.2) 11/11/19 05:35 Baso # (Auto) 0.1 X10^3/uL (0.0-0.1) 11/11/19 05:35 Absolute Nucleated RBC 0.0 /100WBC 11/11/19 05:35 Sodium 137 mmol/L (136-145) 11/11/19 05:35 Corrected Sodium 139 mmol/L (136-145) 11/11/19 05:35 Potassium 4.0 mmol/L (3.5-5.1) 11/11/19 05:35 Chloride 104 mmol/L (98-107) 11/11/19 05:35 Carbon Dioxide 27.2 mmol/L (21-32) 11/11/19 05:35 BUN 3 mg/dL (7-18) L 11/11/19 05:35 Creatinine 0.53 mg/dL (0.70-1.30) L 11/11/19 05:35 Est GFR (MDRD) Af Amer > 60 (>60) 11/11/19 05:35 Est GFR (MDRD) Non-Af > 60 (>60) 11/11/19 05:35 Glucose 176 mg/dL (65-99) H 11/11/19 05:35 POC Glucose (mg/dL) 186 mg/dL (65-99) H 11/11/19 05:44 Hemoglobin A1c > 16.0 % 11/07/19 05:10 Calcium 8.4 mg/dL (8.5-10.1) L 11/11/19 05:35 Corrected Calcium 10.1 mg/dL (8.5-10.1) 11/11/19 05:35 Total Bilirubin 0.20 mg/dL (0.2-1.0) 11/11/19 05:35 AST 17 Units/L (15-37) 11/11/19 05:35 ALT 25 Units/L (12-78) 11/11/19 05:35 Alkaline Phosphatase 85 Units/L (46-116) 11/11/19 05:35 Total Protein 5.9 g/dL (6.4-8.2) L 11/11/19 05:35 Albumin 1.9 g/dL (3.4-5.0) L 11/11/19 05:35 Globulin 4.0 g/dL (2.5-4.5) 11/11/19 05:35 Albumin/Globulin Ratio 0.5 Ratio (1.1-2.1) L 11/11/19 05:35 Vancomycin Trough 11.6 ug/mL (15-20) L 11/10/19 13:20 Reason For Visit: GROIN ABCESS,UNCONTROLLED TYPE 2 DM Discharge Date Discharge Date: 11/11/19 Discharge Diagnosis All Active Problems (Updated 11/06/19 @ 13:52 by TEJA PHELPS) Abscess of groin, left (Acute) Uncontrolled type 2 diabetes mellitus (Acute) Plan of Treatment: Continue with present treatment and follow up plan. Pt is to keep follow up appointment as instructed and take medications as ordered. Discharge Medications Discharge Medications: No Known Drug Allergies Allergy (Verified 11/06/19 10:03) CONTINUE taking the following medications sulfamethoxazole-trimethoprim 1 tab PO BID 11/06/19 [History] New Prescriptions cephalexin 500 mg PO BID 7 Days #14 cap 11/11/19 [Rx] gabapentin 200 mg PO BID 30 Days #120 cap 11/11/19 [Rx] hydrocodone-acetaminophen 1 tab PO BID PRN 5 Days #10 tab MDD 2 tabs 11/11/19 [Rx] insulin detemir U-100 [Levemir FlexTouch U-100 Insuln] 15 unit SUBCUT QHS #15 ml 11/11/19 [Rx] insulin detemir U-100 [Levemir FlexTouch U-100 Insuln] 15 unit SUBCUT QHS #15 ml 11/11/19 [Rx] metformin 1,000 mg PO BID 30 Days #60 tab 11/11/19 [Rx] Follow up and Referral Follow Up: 1 Week Discharge Disposition Discharge Disposition: Home with home health Discharge Condition: Stable
[2019-11-11 12:38] VITALS: BP 123/68
[2019-11-11] MEDS ORDERED: LEVEMIR SC SCH (21:00)
== END 2019-11-11 14:30 | disposition home health service (06) | DRG 603 ==
LOC: ER 10:02 → MED/SURG 13:57
PROVIDERS: ADMIT Internal Medicine; ATTEND Internal Medicine
DX: E11.65 Type 2 diabetes mellitus with hyperglycemia; L02.214 Cutaneous abscess of groin; B95.1 Streptococcus, group B, as the cause of diseases classified elsewhere; M79.605 Pain in left leg
CPT/HCPCS: 36415; 80048; 80053; 80202; 82565; 83036; 85025; 87040; 87070; 87075; 87077; 87186; 96365; 96374; 99284; A4217; A4222; J1815; J3370; J7030; J7050; J7060

== ENCOUNTER 2022-07-28 13:46 | Inpatient (IN) ==
[2022-07-28] MEDS ORDERED: HumaLOG SC PRN (16:23)
[2022-07-28 16:37] LABS: BASOPHILS # (AUTO) 0.1 X10^3/uL (0.0-0.1); EOSINOPHILS # (AUTO) 0.1 x10^3/uL (0.0-0.2); EOSINOPHILS % (AUTO) 1.6 % (0.9-2.9); HEMATOCRIT 45.7 % (42.0-54.0); HEMOGLOBIN 15.1 g/dL (13.5-18.0); LYMPHOCYTES # (AUTO) 1.2 X10^3/uL (1.3-2.9); LYMPHOCYTES % (AUTO) 13.1 % (21.0-51.0); MEAN CORPUSCULAR HEMOGLOBIN 29.3 pg (27.0-34.0); MEAN CORPUSCULAR VOLUME 88.7 fL (80.0-100.0); MEAN PLATELET VOLUME 8.5 fL (7.4-11.0); MONOCYTES # (AUTO) 0.7 x10^3/uL (0.3-0.8); MONOCYTES % (AUTO) 8.1 % (0.0-13.0); NEUTROPHILS # (AUTO) 6.9 x10^3/uL (2.2-4.8); NEUTROPHILS % (AUTO) 76.2 % (42.0-75.0); PLATELET COUNT 235 X10^3/uL (150.0-450.0); RED BLOOD COUNT 5.15 X10^6/uL (4.7-6.0); RED CELL DISTRIBUTION WIDTH 16.2 % (11.6-16.5); WHITE BLOOD COUNT 9.1 X10^3/uL (3.6-10.0)
--- NOTE | 2022-07-28 16:38 | EKG ---
Test Reason : sob Blood Pressure : */* mmHG Vent. Rate : 95 BPM Atrial Rate : 95 BPM P-R Int : 162 ms QRS Dur : 92 ms QT Int : 376 ms P-R-T Axes : 40 -6 53 degrees QTc Int : 472 ms Normal sinus rhythm Cannot rule out Anterior infarct , age undetermined Abnormal ECG No previous ECGs available Confirmed by Matteo Evans ([id number]) on 07/29/2022 9:00:56 AM Referred By: Confirmed By: Matteo Evans
[2022-07-28 16:48] LABS: ALANINE AMINOTRANSFERASE 20 Units/L (12-78); ALBUMIN 2.8 g/dL (3.4-5.0); ALKALINE PHOSPHATASE 56 Units/L (46-116); ASPARTATE AMINO TRANSFERASE 10 Units/L (15-37); BLOOD UREA NITROGEN 5 mg/dL (7-18); CALCIUM 8.4 mg/dL (8.5-10.1); CARBON DIOXIDE 33.8 mmol/L (21-32); CHLORIDE 105 mmol/L (98-107); COR CA(FOR HYPOALB) 9.4 mg/dL (8.5-10.1); COR NA(FOR HYPERGLY) 144 mmol/L (136-145); CREATININE 0.75 mg/dL (0.70-1.30); GLUCOSE 241 mg/dL (65-99); SODIUM 141 mmol/L (136-145); TOTAL PROTEIN 6.1 g/dL (6.4-8.2); eGFR NON BLACK RACES > 60 (>60)
[2022-07-28] MEDS ORDERED: ZOSYN VIAL 3.375 GRAMS 3.375 G in NS 100 ML IV 100 ML IV ONE (16:53)
[2022-07-28 17:05] VITALS: BMI 30.7
[2022-07-28] MEDS: NovoLIN R (or HumuLIN R) SC PRN (17:28)
[2022-07-28] MEDS ORDERED: GLUCOPHAGE ONE (20:09)
--- NOTE | 2022-07-28 20:14 | RAD ---
HISTORYSOB, COUGH Relevant Clinical InformationSTUDYCHEST, 1 VIEWCOMPARISONFINDINGSThe trachea is midline. The cardiac silhouette is enlarged. The pulmonary blood flow is congested. The interstitial markings are increased suggesting pulmonary edema. There are bilateral pleural effusions the bony thorax is unremarkable.IMPRESSIONFindings suggestive of congestive heart failure with pulmonary edema and pleural effusions.Electronically signed by: Ever Hammer (July 28, 2022 20:12:48)
[2022-07-28] MEDS: GLUCOPHAGE PO SCH (20:25)
[2022-07-28] MEDS: LASIX IVP SCH (20:25)
[2022-07-28] MEDS: NEURONTIN TAB 600 MG PO SCH (22:14)
[2022-07-29] MEDS: NEURONTIN TAB 600 MG PO SCH ×3 (05:15→21:01)
[2022-07-29] MEDS ORDERED: GLUCOPHAGE ONE ×2 (08:10→20:37)
[2022-07-29] MEDS: LASIX IVP SCH (08:22)
[2022-07-29] MEDS: GLUCOPHAGE PO SCH ×2 (08:24→20:57)
[2022-07-29] MEDS: GLUCOTROL XL 24-HR PO SCH (08:29)
[2022-07-29] MEDS: ULTRAM PO PRN (08:30)
--- NOTE | 2022-07-29 08:48 | DR.H&P ---
H&P History & Physical for Day of: H&P Date: 07/28/22 Chief Complaint Chief Complaint: worsening leg swelling, SOB Allergies Allergies Allergy/AdvReac Type Severity Reaction Status Date / Time No Known Drug Allergies Allergy Unknown Verified 07/28/22 16:32 History of Present Illness History of Present Illness: Patient is a 56y/o male with uncontrolled diabetes complicated with neuropathy, HLD and chronic pain presented to the office with worsening lower ext edema, redness and pain for the past couple months. He reports the pain and swelling has been worsening and gone up to his thighs. He also reports worsening exertional dyspnea. He was directly admitted for further work up. He reports tightness and pain with both legs with open wounds and blisters. Denies chest pain or chest pressure. His FSBG have been in the 200s. Plan: direct admission to med surg. Vitals as per protocol. Stat labs - CBC, CMP, BNP, Troponin. CXR and Venous US. Will also add Zosyn for possible LE cellulitis. Resume home medications, add insulin SSI. Diabetic diet. Keep both legs elevated. Daily wt, strict I&Os. Update: patient does have elevated BNP, CXR suggestive of CHF. Will order echo for AM. Past Medical History Past Medical History: Diabetes Past Surgical History Surgical History: Other Family History Family Medical History: Diabetes Mellitus and Cancer Medications Home Medications: No Known Drug Allergies Allergy (Unknown, Unverified 11/14/19 13:50) Labs Result Diagrams: 07/28/22 16:25 07/28/22 16:25 Review of Systems Constitutional: No Symptoms Reported Eyes: No Symptoms Reported Respiratory: Cough, Shortness of Breath and SOB with Excertion Cardiovascular: Edema Musculoskeletal: Leg Pain and Foot Pain Skin: Wound Neurological: No Symptoms Reported Physical Exam Vital Signs: Blood Pressure [Left Arm] 123/68 Blood Pressure 161/91 Oriented: Normal Nose: Normal Throat: Normal Cardiovascular: Normal and Edema (3+ pitting edema both LE) Auscultation: Bowel Sounds: Normal Palpation: Normal Tenderness: Normal Musculoskeletal: Right, Left, Leg (edema, erythematous, open blisters ), Ankle and Swelling Assessment/Plan (1) CHF exacerbation: Status: Acute (2) Leg edema: Status: Acute (3) Dyspnea: Status: Acute (4) Uncontrolled type 2 diabetes mellitus: Qualifiers: Glycemic state: with hyperglycemia Qualified Code(s): E11.65 - Type 2 diabetes mellitus with hyperglycemia Status: Acute (5) Benign hypertension: Status: None (6) Hyperlipidemia: Status: None
--- NOTE | 2022-07-29 09:08 | PCM.PROG ---
Progress Note Progress Note for Day of Date of Exam: 07/29/22 Subjective Subjective: Patient is a 56y/o male with uncontrolled diabetes complicated with neuropathy, HLD and chronic pain admitted for CHF exacerbation and lower extremity cellulitis. This morning he is sitting on side of bed, still complaining of significant edema in his bilateral lower extremities. No acute ev ents overnight. Labs/imaging: Wbc 9.1, Hgb 15.1, Plt 235, Na 141, K 4.0, Creatinine 0.75, Glucose 241, Troponin negative, BNP 277. CXR was obtained that revealed: Findings suggestive of congestive heart failure with pulmonary edema and pleural effusions. Pt has vitals as per protocol, SSI, and is receiving Zosyn for possible LE cellulitis. IV lasix 40mg daily. Home medications have been resumed. Diabetic diet. Keep both legs elevated. Daily wt, strict I&Os. Bilateral lower extremity ultrasound ordered to rule out DVT and Echo ordered to evaluate cardiac function. Otherwise, continue with current treatment plan. Continue to monitor and follow up labs/imaging. Past Medical Family Social History Allergies: Allergies No Known Drug Allergies Allergy (Unknown, Verified 07/28/22 16:32) Onset Date: 11/14/2019 Review of Systems ROS changes noted: see HPI Vital Signs and I&O's Vital Signs: Temperature 97.5 F Pulse Rate [Left] 84 Respiratory Rate 20 Blood Pressure [Left Arm] 127/79 Blood Pressure 161/91 O2 Sat by Pulse Oximetry 94 Intake and Output: Intake & Output 07/26/22 07/27/22 07/28/22 07/29/22 23:59 23:59 23:59 23:59 Intake Total 320 / 320 Output Total 1200 / 1200 Balance -880 / -880 Physical Exam Oriented: Normal Eyes: Normal Ear: Normal Nose: Normal Throat: Normal Respiratory: Normal Cardiovascular: Normal and Edema (3+ pitting edema both LE) Auscultation: Bowel Sounds: Normal Tenderness: Normal Musculoskeletal: Right, Left, Leg (edema, erythematous, open blisters ), Ankle and Swelling Speech Pattern: Clear and Appropriate Laboratory and Diagnostics Result Diagrams: 07/28/22 16:25 07/28/22 16:25 Labs: Laboratory WBC 9.1 X10^3/uL (3.6-10.0) 07/28/22 16:25 RBC 5.15 X10^6/uL (4.7-6.0) 07/28/22 16:25 Hgb 15.1 g/dL (13.5-18.0) 07/28/22 16:25 Hct 45.7 % (42.0-54.0) 07/28/22 16:25 MCV 88.7 fL (80.0-100.0) 07/28/22 16:25 MCH 29.3 pg (27.0-34.0) 07/28/22 16:25 MCHC 33.0 g/dL (33.0-35.0) 07/28/22 16:25 RDW 16.2 % (11.6-16.5) 07/28/22 16:25 Plt Count 235 X10^3/uL (150.0-450.0) 07/28/22 16:25 MPV 8.5 fL (7.4-11.0) 07/28/22 16:25 Neut % (Auto) 76.2 % (42.0-75.0) H 07/28/22 16:25 Lymph % (Auto) 13.1 % (21.0-51.0) L 07/28/22 16:25 Davidson % (Auto) 8.1 % (0.0-13.0) 07/28/22 16:25 Eos % (Auto) 1.6 % (0.9-2.9) 07/28/22 16:25 Baso % (Auto) 1.0 % (0.2-1.0) 07/28/22 16:25 Neut # (Auto) 6.9 x10^3/uL (2.2-4.8) H 07/28/22 16:25 Lymph # (Auto) 1.2 X10^3/uL (1.3-2.9) L 07/28/22 16:25 Davidson # (Auto) 0.7 x10^3/uL (0.3-0.8) 07/28/22 16:25 Eos # (Auto) 0.1 x10^3/uL (0.0-0.2) 07/28/22 16:25 Baso # (Auto) 0.1 X10^3/uL (0.0-0.1) 07/28/22 16:25 Absolute Nucleated RBC 0.0 /100WBC 07/28/22 16:25 Sodium 141 mmol/L (136-145) 07/28/22 16:25 Corrected Sodium 144 mmol/L (136-145) 07/28/22 16:25 Potassium 4.0 mmol/L (3.5-5.1) 07/28/22 16:25 Chloride 105 mmol/L (98-107) 07/28/22 16:25 Carbon Dioxide 33.8 mmol/L (21-32) H 07/28/22 16:25 BUN 5 mg/dL (7-18) L 07/28/22 16:25 Creatinine 0.75 mg/dL (0.70-1.30) 07/28/22 16:25 Est GFR (MDRD) Af Amer > 60 (>60) 07/28/22 16:25 Est GFR (MDRD) Non-Af > 60 (>60) 07/28/22 16:25 Glucose 241 mg/dL (65-99) H 07/28/22 16:25 POC Glucose (mg/dL) 127 mg/dL (65-99) H 07/29/22 05:13 Calcium 8.4 mg/dL (8.5-10.1) L 07/28/22 16:25 Corrected Calcium 9.4 mg/dL (8.5-10.1) 07/28/22 16:25 Total Bilirubin 0.30 mg/dL (0.2-1.0) 07/28/22 16:25 AST 10 Units/L (15-37) L 07/28/22 16:25 ALT 20 Units/L (12-78) 07/28/22 16:25 Alkaline Phosphatase 56 Units/L (46-116) 07/28/22 16:25 Troponin I High Sens 12.5 ng/L (4.0-60.0) 07/28/22 16:25 B-Natriuretic Peptide 277 pg/mL (0-79) H 07/28/22 16:25 Total Protein 6.1 g/dL (6.4-8.2) L 07/28/22 16:25 Albumin 2.8 g/dL (3.4-5.0) L 07/28/22 16:25 Globulin 3.3 g/dL (2.5-4.5) 07/28/22 16:25 Albumin/Globulin Ratio 0.8 Ratio (1.1-2.1) L 07/28/22 16:25 Plan (1) CHF exacerbation: Status: Acute (2) Cellulitis: Status: Acute (3) Leg edema: Status: Acute (4) Dyspnea: Status: Acute (5) Uncontrolled type 2 diabetes mellitus: Status: Acute Qualifiers: Glycemic state: with hyperglycemia Qualified Code(s): E11.65 - Type 2 diabetes mellitus with hyperglycemia (6) Benign hypertension: Status: None (7) Hyperlipidemia: Status: None
[2022-07-29] MEDS: ZOSYN VIAL 3.375 GRAMS 3.375 G in NS 100 ML IV 100 ML IV SCH ×3 (11:37→21:02)
[2022-07-29] MEDS ORDERED: LOVENOX INJ 40 MG SYR SC SCH (12:00)
[2022-07-29] MEDS: ASPIRIN EC 81 MG PO SCH (13:08)
--- NOTE | 2022-07-29 13:15 | VAS ---
HISTORY: Extremity pain, swelling, and edemaStudy: Bilateral lower extremity Doppler venous ultrasound.TECHNIQUE: Multiple khoury scale and color flow Doppler images of the deep venous system were obtained of the [right and left] lower extremity.FINDINGS: The deep venous system of the [right and left lower extremities were] evaluated from the level of the common femoral veins through the popliteal veins, bilaterally. Normal color flow and augmentation can be observed. In addition, normal compression is seen throughout the deep venous system. No Hammer's cyst is seen.IMPRESSION:1. Negative examination for DVT.Electronically signed by: MADY HILLMAN III (July 29, 2022 13:14:23)
[2022-07-30] MEDS: ZOSYN VIAL 3.375 GRAMS 3.375 G in NS 100 ML IV 100 ML IV SCH ×3 (05:22→21:04)
[2022-07-30] MEDS: NEURONTIN TAB 600 MG PO SCH ×3 (05:22→21:40)
[2022-07-30 06:34] LABS: ALANINE AMINOTRANSFERASE 17 Units/L (12-78); ALBUMIN 2.5 g/dL (3.4-5.0); ALKALINE PHOSPHATASE 49 Units/L (46-116); ASPARTATE AMINO TRANSFERASE 10 Units/L (15-37); BLOOD UREA NITROGEN 8 mg/dL (7-18); CALCIUM 8.1 mg/dL (8.5-10.1); CARBON DIOXIDE 29.2 mmol/L (21-32); CHLORIDE 105 mmol/L (98-107); COR CA(FOR HYPOALB) 9.3 mg/dL (8.5-10.1); COR NA(FOR HYPERGLY) 142 mmol/L (136-145); CREATININE 0.73 mg/dL (0.70-1.30); GLUCOSE 201 mg/dL (65-99); POTASSIUM 3.7 mmol/L (3.5-5.1); SODIUM 140 mmol/L (136-145); TOTAL PROTEIN 5.8 g/dL (6.4-8.2); eGFR NON BLACK RACES > 60 (>60)
[2022-07-30 06:50] LABS: BASOPHILS # (AUTO) 0.1 X10^3/uL (0.0-0.1); BASOPHILS % (AUTO) 1.2 % (0.2-1.0); EOSINOPHILS # (AUTO) 0.3 x10^3/uL (0.0-0.2); EOSINOPHILS % (AUTO) 3.9 % (0.9-2.9); HEMATOCRIT 45.1 % (42.0-54.0); HEMOGLOBIN 14.7 g/dL (13.5-18.0); LYMPHOCYTES # (AUTO) 1.5 X10^3/uL (1.3-2.9); LYMPHOCYTES % (AUTO) 19.7 % (21.0-51.0); MEAN CORPUSCULAR HEMOGLOBIN 29.1 pg (27.0-34.0); MEAN CORPUSCULAR HGB CONC 32.7 g/dL (33.0-35.0); MEAN CORPUSCULAR VOLUME 89.2 fL (80.0-100.0); MEAN PLATELET VOLUME 8.9 fL (7.4-11.0); MONOCYTES # (AUTO) 0.8 x10^3/uL (0.3-0.8); MONOCYTES % (AUTO) 10.6 % (0.0-13.0); NEUTROPHILS % (AUTO) 64.6 % (42.0-75.0); PLATELET COUNT 232 X10^3/uL (150.0-450.0); RED BLOOD COUNT 5.06 X10^6/uL (4.7-6.0); RED CELL DISTRIBUTION WIDTH 15.9 % (11.6-16.5); WHITE BLOOD COUNT 7.7 X10^3/uL (3.6-10.0)
[2022-07-30] MEDS ORDERED: GLUCOPHAGE ONE ×2 (08:40→20:31)
[2022-07-30] MEDS: GLUCOPHAGE PO SCH ×2 (08:46→21:03)
[2022-07-30] MEDS: GLUCOTROL XL 24-HR PO SCH (08:46)
[2022-07-30] MEDS: LASIX IVP SCH ×2 (08:46→17:08)
[2022-07-30] MEDS: ASPIRIN EC 81 MG PO SCH (08:46)
[2022-07-30] MEDS ORDERED: REFLEX: PROVENTIL NEB & PulmiCORT NEB~ NEB SCH ×2 (12:15→21:00)
[2022-07-30] MEDS: K-DUR TAB 20 MEQ PO SCH ×2 (15:20→21:03)
[2022-07-30] MEDS: ULTRAM PO PRN (17:08)
--- NOTE | 2022-07-30 18:18 | PCM.PROG ---
Progress Note Progress Note for Day of Date of Exam: 07/30/22 Subjective Subjective: Patient is a 56y/o male with uncontrolled diabetes complicated with neuropathy, HLD and chronic pain admitted for CHF exacerbation and lower extremity cellulitis. This morning he is sitting on side of bed, still complaining of significant edema in his bilateral lower extremities. No acute ev ents overnight. Labs/imaging: Wbc 9.1, Hgb 15.1, Plt 235, Na 141, K 4.0, Creatinine 0.75, Glucose 241, Troponin negative, BNP 277. CXR was obtained that revealed: Findings suggestive of congestive heart failure with pulmonary edema and pleural effusions. Pt has vitals as per protocol, SSI, and is receiving Zosyn for possible LE cellulitis. IV lasix 40mg daily. Home medications have been resumed. Diabetic diet. Keep both legs elevated. Daily wt, strict I&Os. Bilateral lower extremity ultrasound ordered to rule out DVT and Echo ordered to evaluate cardiac function. Otherwise, continue with current treatment plan. Continue to monitor and follow up labs/imaging. Monday, 30 Jul 2022 Patient is lying in bed comfortably this morning. He has no new complaints at this time. His labs are normal overall. Doppler ultrasound of the left lower extremity showed no DVT. Repeat CBC, CMP magnesium and V-neck in AM. No change in treatment at this time. Past Medical Family Social History Allergies: Allergies No Known Drug Allergies Allergy (Unknown, Verified 07/28/22 16:32) Onset Date: 11/14/2019 Vital Signs and I&O's Vital Signs: Temperature 97.8 F Pulse Rate [Left] 97 Respiratory Rate 20 Blood Pressure [Left Arm] 167/87 Blood Pressure 161/91 O2 Sat by Pulse Oximetry 95 Intake and Output: Intake & Output 07/28/22 07/29/22 07/30/22 07/31/22 11:59 11:59 11:59 11:59 Intake Total 340 / 340 1351 / 1351 1730 / 1730 Output Total 1200 / 1200 830 / 830 1400 / 1400 Balance -860 / -860 521 / 521 330 / 330 Physical Exam Oriented: Normal Eyes: Normal Ear: Normal Nose: Normal Throat: Normal Respiratory: Normal Cardiovascular: Normal and Edema (3+ pitting edema both LE) Auscultation: Bowel Sounds: Normal Tenderness: Normal Musculoskeletal: Right, Left, Leg (edema, erythematous, open blisters ), Ankle and Swelling Speech Pattern: Clear and Appropriate Laboratory and Diagnostics Result Diagrams: 07/30/22 05:37 07/30/22 05:37 Labs: 07/29/22 21:18 Leg - Right Wound Gram Stain - Final 07/29/22 21:18 Leg - Left Wound Gram Stain - Final Laboratory WBC 7.7 X10^3/uL (3.6-10.0) 07/30/22 05:37 RBC 5.06 X10^6/uL (4.7-6.0) 07/30/22 05:37 Hgb 14.7 g/dL (13.5-18.0) 07/30/22 05:37 Hct 45.1 % (42.0-54.0) 07/30/22 05:37 MCV 89.2 fL (80.0-100.0) 07/30/22 05:37 MCH 29.1 pg (27.0-34.0) 07/30/22 05:37 MCHC 32.7 g/dL (33.0-35.0) L 07/30/22 05:37 RDW 15.9 % (11.6-16.5) 07/30/22 05:37 Plt Count 232 X10^3/uL (150.0-450.0) 07/30/22 05:37 MPV 8.9 fL (7.4-11.0) 07/30/22 05:37 Neut % (Auto) 64.6 % (42.0-75.0) 07/30/22 05:37 Lymph % (Auto) 19.7 % (21.0-51.0) L 07/30/22 05:37 [place] % (Auto) 10.6 % (0.0-13.0) 07/30/22 05:37 Eos % (Auto) 3.9 % (0.9-2.9) H 07/30/22 05:37 Baso % (Auto) 1.2 % (0.2-1.0) H 07/30/22 05:37 Neut # (Auto) 5.0 x10^3/uL (2.2-4.8) H 07/30/22 05:37 Lymph # (Auto) 1.5 X10^3/uL (1.3-2.9) 07/30/22 05:37 [place] # (Auto) 0.8 x10^3/uL (0.3-0.8) 07/30/22 05:37 Eos # (Auto) 0.3 x10^3/uL (0.0-0.2) H 07/30/22 05:37 Baso # (Auto) 0.1 X10^3/uL (0.0-0.1) 07/30/22 05:37 Absolute Nucleated RBC 0.1 /100WBC 07/30/22 05:37 Sodium 140 mmol/L (136-145) 07/30/22 05:37 Corrected Sodium 142 mmol/L (136-145) 07/30/22 05:37 Potassium 3.7 mmol/L (3.5-5.1) 07/30/22 05:37 Chloride 105 mmol/L (98-107) 07/30/22 05:37 Carbon Dioxide 29.2 mmol/L (21-32) 07/30/22 05:37 BUN 8 mg/dL (7-18) 07/30/22 05:37 Creatinine 0.73 mg/dL (0.70-1.30) 07/30/22 05:37 Est GFR (MDRD) Af Amer > 60 (>60) 07/30/22 05:37 Est GFR (MDRD) Non-Af > 60 (>60) 07/30/22 05:37 Glucose 201 mg/dL (65-99) H 07/30/22 05:37 POC Glucose (mg/dL) 174 mg/dL (65-99) H 07/30/22 17:02 Calcium 8.1 mg/dL (8.5-10.1) L 07/30/22 05:37 Corrected Calcium 9.3 mg/dL (8.5-10.1) 07/30/22 05:37 Total Bilirubin 0.20 mg/dL (0.2-1.0) 07/30/22 05:37 AST 10 Units/L (15-37) L 07/30/22 05:37 ALT 17 Units/L (12-78) 07/30/22 05:37 Alkaline Phosphatase 49 Units/L (46-116) 07/30/22 05:37 Troponin I High Sens 12.5 ng/L (4.0-60.0) 07/28/22 16:25 B-Natriuretic Peptide 203 pg/mL (0-79) H 07/30/22 05:37 Total Protein 5.8 g/dL (6.4-8.2) L 07/30/22 05:37 Albumin 2.5 g/dL (3.4-5.0) L 07/30/22 05:37 Globulin 3.3 g/dL (2.5-4.5) 07/30/22 05:37 Albumin/Globulin Ratio 0.8 Ratio (1.1-2.1) L 07/30/22 05:37 Radiology Reviewed: Yes Plan (1) CHF exacerbation: Status: Acute (2) Cellulitis: Status: Acute (3) Leg edema: Status: Acute (4) Dyspnea: Status: Acute (5) Uncontrolled type 2 diabetes mellitus: Status: Acute Qualifiers: Glycemic state: with hyperglycemia Qualified Code(s): E11.65 - Type 2 diabetes mellitus with hyperglycemia (6) Benign hypertension: Status: None (7) Hyperlipidemia: Status: None
[2022-07-30] MEDS ORDERED: PULMICORT NEB TX 0.5 MG NEB ONE (19:12)
[2022-07-30] MEDS ORDERED: PROVENTIL NEB TX 0.083% 2.5MG/ 3ML ONE (19:12)
[2022-07-30] MEDS: PULMICORT NEB TX 0.5 MG NEB SCH (20:16)
[2022-07-30] MEDS: PROVENTIL NEB TX 0.083% 2.5MG/ 3ML NEB SCH (20:16)
[2022-07-31] MEDS: NEURONTIN TAB 600 MG PO SCH ×3 (05:07→20:59)
[2022-07-31] MEDS: ZOSYN VIAL 3.375 GRAMS 3.375 G in NS 100 ML IV 100 ML IV SCH ×3 (05:07→20:59)
[2022-07-31] MEDS: NovoLIN R (or HumuLIN R) SC PRN ×2 (05:35→17:45)
[2022-07-31 06:05] LABS: BASOPHILS # (AUTO) 0.1 X10^3/uL (0.0-0.1); BASOPHILS % (AUTO) 1.4 % (0.2-1.0); EOSINOPHILS # (AUTO) 0.3 x10^3/uL (0.0-0.2); EOSINOPHILS % (AUTO) 3.7 % (0.9-2.9); HEMATOCRIT 42.7 % (42.0-54.0); HEMOGLOBIN 14.1 g/dL (13.5-18.0); LYMPHOCYTES # (AUTO) 1.5 X10^3/uL (1.3-2.9); LYMPHOCYTES % (AUTO) 19.3 % (21.0-51.0); MEAN CORPUSCULAR HEMOGLOBIN 29.4 pg (27.0-34.0); MEAN CORPUSCULAR HGB CONC 33.1 g/dL (33.0-35.0); MEAN PLATELET VOLUME 8.6 fL (7.4-11.0); MONOCYTES # (AUTO) 0.8 x10^3/uL (0.3-0.8); MONOCYTES % (AUTO) 10.6 % (0.0-13.0); NEUTROPHILS # (AUTO) 5.1 x10^3/uL (2.2-4.8); PLATELET COUNT 221 X10^3/uL (150.0-450.0); RED BLOOD COUNT 4.81 X10^6/uL (4.7-6.0); RED CELL DISTRIBUTION WIDTH 15.7 % (11.6-16.5); WHITE BLOOD COUNT 7.8 X10^3/uL (3.6-10.0)
[2022-07-31 06:12] LABS: ALANINE AMINOTRANSFERASE 14 Units/L (12-78); ALBUMIN 2.5 g/dL (3.4-5.0); ALKALINE PHOSPHATASE 51 Units/L (46-116); ASPARTATE AMINO TRANSFERASE 10 Units/L (15-37); BLOOD UREA NITROGEN 10 mg/dL (7-18); CARBON DIOXIDE 32.3 mmol/L (21-32); CHLORIDE 103 mmol/L (98-107); COR CA(FOR HYPOALB) 9.2 mg/dL (8.5-10.1); COR NA(FOR HYPERGLY) 144 mmol/L (136-145); CREATININE 0.73 mg/dL (0.70-1.30); GLUCOSE 223 mg/dL (65-99); POTASSIUM 3.7 mmol/L (3.5-5.1); SODIUM 141 mmol/L (136-145); TOTAL PROTEIN 5.7 g/dL (6.4-8.2); eGFR NON BLACK RACES > 60 (>60)
[2022-07-31] MEDS: PULMICORT NEB TX 0.5 MG NEB SCH ×2 (08:19→21:12)
[2022-07-31] MEDS: PROVENTIL NEB TX 0.083% 2.5MG/ 3ML NEB SCH ×2 (08:19→21:12)
[2022-07-31] MEDS ORDERED: GLUCOPHAGE ONE ×2 (08:51→19:16)
[2022-07-31] MEDS: GLUCOPHAGE PO SCH ×2 (09:24→20:44)
[2022-07-31] MEDS: K-DUR TAB 20 MEQ PO SCH ×2 (09:24→20:44)
[2022-07-31] MEDS: ASPIRIN EC 81 MG PO SCH (09:25)
[2022-07-31] MEDS: LASIX IVP SCH ×2 (09:25→17:45)
[2022-07-31] MEDS: GLUCOTROL XL 24-HR PO SCH (09:37)
[2022-07-31] MEDS: ZYVOX 600MG IV 600 MG/300 ML BAG IV SCH ×2 (12:48→20:44)
[2022-07-31] MEDS: ULTRAM PO PRN (13:14)
[2022-07-31] MEDS ORDERED: NS 250 ML IV 250 ML IV PRN (19:04)
[2022-07-31] MEDS ORDERED: NS 250 ML IV 250 ML IV ONE (19:18)
[2022-07-31] MEDS: NORCO 10/325 TAB PO PRN (20:58)
[2022-08-01] MEDS: NEURONTIN TAB 600 MG PO SCH ×3 (05:17→21:09)
[2022-08-01] MEDS: ZOSYN VIAL 3.375 GRAMS 3.375 G in NS 100 ML IV 100 ML IV SCH ×3 (05:17→22:00)
[2022-08-01] MEDS: NovoLIN R (or HumuLIN R) SC PRN ×2 (05:38→17:46)
[2022-08-01 05:49] LABS: ALANINE AMINOTRANSFERASE 13 Units/L (12-78); ALBUMIN 2.6 g/dL (3.4-5.0); ALKALINE PHOSPHATASE 43 Units/L (46-116); ASPARTATE AMINO TRANSFERASE 10 Units/L (15-37); BLOOD UREA NITROGEN 11 mg/dL (7-18); CALCIUM 8.1 mg/dL (8.5-10.1); CARBON DIOXIDE 33.5 mmol/L (21-32); CHLORIDE 102 mmol/L (98-107); COR CA(FOR HYPOALB) 9.2 mg/dL (8.5-10.1); COR NA(FOR HYPERGLY) 142 mmol/L (136-145); CREATININE 0.82 mg/dL (0.70-1.30); GLUCOSE 219 mg/dL (65-99); MAGNESIUM 1.6 mg/dL (2.0-2.9); POTASSIUM 3.8 mmol/L (3.5-5.1); SODIUM 139 mmol/L (136-145); TOTAL PROTEIN 5.8 g/dL (6.4-8.2); eGFR NON BLACK RACES > 60 (>60)
[2022-08-01 05:52] LABS: ERYTHROCYTE SEDIMENTATION RATE 20 MM/HOUR (0-15)
[2022-08-01 05:55] LABS: BASOPHILS # (AUTO) 0.1 X10^3/uL (0.0-0.1); BASOPHILS % (AUTO) 1.2 % (0.2-1.0); EOSINOPHILS # (AUTO) 0.3 x10^3/uL (0.0-0.2); EOSINOPHILS % (AUTO) 3.3 % (0.9-2.9); HEMATOCRIT 40.5 % (42.0-54.0); HEMOGLOBIN 13.3 g/dL (13.5-18.0); LYMPHOCYTES # (AUTO) 1.5 X10^3/uL (1.3-2.9); LYMPHOCYTES % (AUTO) 18.1 % (21.0-51.0); MEAN CORPUSCULAR HEMOGLOBIN 29.1 pg (27.0-34.0); MEAN CORPUSCULAR HGB CONC 32.9 g/dL (33.0-35.0); MEAN CORPUSCULAR VOLUME 88.5 fL (80.0-100.0); MEAN PLATELET VOLUME 8.7 fL (7.4-11.0); MONOCYTES % (AUTO) 11.9 % (0.0-13.0); NEUTROPHILS # (AUTO) 5.6 x10^3/uL (2.2-4.8); NEUTROPHILS % (AUTO) 65.5 % (42.0-75.0); PLATELET COUNT 224 X10^3/uL (150.0-450.0); RED BLOOD COUNT 4.57 X10^6/uL (4.7-6.0); RED CELL DISTRIBUTION WIDTH 15.7 % (11.6-16.5); WHITE BLOOD COUNT 8.5 X10^3/uL (3.6-10.0)
--- NOTE | 2022-08-01 06:43 | RAD ---
HISTORYShortness of breathSTUDYCHEST, 1 [id number]/11/2023FINDINGSThe trachea is midline. The cardiac silhouette is enlarged with a tortuous thoracic aorta . Increased interstitial changes with prominent vascular markings are observed consistent with underlying CHF.. The bony thorax is unremarkable.IMPRESSIONIncreased interstitial changes with prominent vascular markings are observed consistent with underlying CHF. Bibasilar infiltrates and pleural effusions are noted to be present as well.Electronically signed by: NETTE ZARATE (August 01, 2022 06:42:01)
[2022-08-01] MEDS: PULMICORT NEB TX 0.5 MG NEB SCH ×2 (09:02→20:58)
[2022-08-01] MEDS: PROVENTIL NEB TX 0.083% 2.5MG/ 3ML NEB SCH ×2 (09:02→20:58)
[2022-08-01] MEDS ORDERED: GLUCOPHAGE ONE ×2 (09:25→19:53)
[2022-08-01] MEDS: GLUCOPHAGE PO SCH ×2 (09:28→20:03)
[2022-08-01] MEDS: K-DUR TAB 20 MEQ PO SCH ×2 (09:28→20:03)
[2022-08-01] MEDS: ASPIRIN EC 81 MG PO SCH (09:28)
[2022-08-01] MEDS: GLUCOTROL XL 24-HR PO SCH (09:28)
[2022-08-01] MEDS: LASIX IVP SCH ×2 (09:28→17:44)
[2022-08-01] MEDS: ZYVOX 600MG IV 600 MG/300 ML BAG IV SCH ×2 (09:54→20:02)
[2022-08-01] MEDS: MAGNESIUM SULFATE 1 GRAM/100 mL PREMIX 1 G/100 ML BAG IV PRN ×2 (13:01→14:23)
[2022-08-02] MEDS: NEURONTIN TAB 600 MG PO SCH ×3 (05:14→21:33)
[2022-08-02] MEDS: ZOSYN VIAL 3.375 GRAMS 3.375 G in NS 100 ML IV 100 ML IV SCH ×2 (05:14→15:29)
[2022-08-02] MEDS: ULTRAM PO PRN ×2 (05:20→14:46)
[2022-08-02 06:08] LABS: BASOPHILS # (AUTO) 0.1 X10^3/uL (0.0-0.1); BASOPHILS % (AUTO) 1.2 % (0.2-1.0); EOSINOPHILS # (AUTO) 0.3 x10^3/uL (0.0-0.2); EOSINOPHILS % (AUTO) 2.8 % (0.9-2.9); HEMATOCRIT 43.1 % (42.0-54.0); HEMOGLOBIN 14.2 g/dL (13.5-18.0); LYMPHOCYTES # (AUTO) 1.3 X10^3/uL (1.3-2.9); LYMPHOCYTES % (AUTO) 13.8 % (21.0-51.0); MEAN CORPUSCULAR HGB CONC 32.8 g/dL (33.0-35.0); MEAN CORPUSCULAR VOLUME 88.2 fL (80.0-100.0); MEAN PLATELET VOLUME 8.5 fL (7.4-11.0); MONOCYTES # (AUTO) 1.1 x10^3/uL (0.3-0.8); MONOCYTES % (AUTO) 11.1 % (0.0-13.0); NEUTROPHILS # (AUTO) 6.9 x10^3/uL (2.2-4.8); NEUTROPHILS % (AUTO) 71.1 % (42.0-75.0); PLATELET COUNT 237 X10^3/uL (150.0-450.0); RED BLOOD COUNT 4.89 X10^6/uL (4.7-6.0); RED CELL DISTRIBUTION WIDTH 15.8 % (11.6-16.5); WHITE BLOOD COUNT 9.8 X10^3/uL (3.6-10.0)
[2022-08-02 06:18] LABS: ALANINE AMINOTRANSFERASE 14 Units/L (12-78); ALBUMIN 2.8 g/dL (3.4-5.0); ALKALINE PHOSPHATASE 46 Units/L (46-116); ASPARTATE AMINO TRANSFERASE 12 Units/L (15-37); BLOOD UREA NITROGEN 14 mg/dL (7-18); CALCIUM 8.4 mg/dL (8.5-10.1); CARBON DIOXIDE 33.9 mmol/L (21-32); CHLORIDE 102 mmol/L (98-107); COR CA(FOR HYPOALB) 9.4 mg/dL (8.5-10.1); CREATININE 0.76 mg/dL (0.70-1.30); GLUCOSE 93 mg/dL (65-99); POTASSIUM 4.2 mmol/L (3.5-5.1); SODIUM 140 mmol/L (136-145); TOTAL PROTEIN 6.5 g/dL (6.4-8.2); eGFR NON BLACK RACES > 60 (>60)
[2022-08-02] MEDS ORDERED: GLUCOPHAGE ONE ×2 (07:28→20:26)
[2022-08-02] MEDS: GLUCOTROL XL 24-HR PO SCH (08:02)
[2022-08-02] MEDS: K-DUR TAB 20 MEQ PO SCH ×2 (08:02→20:42)
[2022-08-02] MEDS: ASPIRIN EC 81 MG PO SCH (08:02)
[2022-08-02] MEDS: LASIX IVP SCH ×2 (08:03→17:32)
[2022-08-02] MEDS: GLUCOPHAGE PO SCH ×2 (08:03→20:42)
--- NOTE | 2022-08-02 08:44 | PCM.PROG ---
Progress Note Progress Note for Day of Date of Exam: 08/01/22 Subjective Subjective: Patient is a 56y/o male with uncontrolled diabetes complicated with neuropathy, HLD and chronic pain admitted for new onset CHF exacerbation and lower extremity cellulitis. This morning he is resting in bed. He reports still having shortness of breath with exertion. Reports some improvement in his lower extremity edema. Labs/imaging: Wbc 8.5, Hgb 13.3, Plt 224, Na 139, K 3.8, Creatinine 0.82, Glucose 219. Pt has vitals as per protocol, SSI, and is receiving Zosyn and Zyvox for lower extremity cellulitis. IV lasix 40mg daily. Home medications have been resumed. Diabetic diet. Keep both legs elevated. Daily wt, strict I&Os. Echo ordered that revealed EF:13%. Will consult [facility] and cardiology-Dr Evans. Increase IV lasix to 40mg BID. Otherwise continue with current treatment plan. Continue to monitor and follow up labs/imaging. Past Medical Family Social History Allergies: Allergies No Known Drug Allergies Allergy (Unknown, Verified 07/28/22 16:32) Onset Date: 11/14/2019 Review of Systems ROS changes noted: see HPI Vital Signs and I&O's Vital Signs: Temperature 97.9 F Pulse Rate [Left] 90 Pulse Rate 90 Respiratory Rate 18 Blood Pressure [Right Arm] 130/77 Blood Pressure [Left Arm] 132/80 Blood Pressure 161/91 O2 Sat by Pulse Oximetry 94 Intake and Output: Intake & Output 07/30/22 07/31/22 08/01/22 08/02/22 23:59 23:59 23:59 23:59 Intake Total 2380 / 2380 2249 / 2249 2570 / 2570 487 / 487 Output Total 1950 / 1950 700 / 700 1550 / 1550 Balance 430 / 430 1549 / 1549 1020 / 1020 487 / 487 Physical Exam Oriented: Normal Eyes: Normal Ear: Normal Nose: Normal Throat: Normal Respiratory: Normal Cardiovascular: Normal and Edema (2+ pitting edema both LE) Auscultation: Bowel Sounds: Normal Tenderness: Normal Musculoskeletal: Right, Left, Leg (edema, erythematous,), Ankle and Swelling Speech Pattern: Clear and Appropriate Laboratory and Diagnostics Result Diagrams: 08/02/22 05:11 08/02/22 05:11 Labs: 07/29/22 21:18 Leg - Right Wound Gram Stain - Final 07/29/22 21:18 Leg - Right Wound Culture - Preliminary Staphylococcus Aureus 07/29/22 21:18 Leg - Left Wound Gram Stain - Final 07/29/22 21:18 Leg - Left Wound Culture - Preliminary Staphylococcus Aureus Laboratory WBC 9.8 X10^3/uL (3.6-10.0) 08/02/22 05:11 RBC 4.89 X10^6/uL (4.7-6.0) 08/02/22 05:11 Hgb 14.2 g/dL (13.5-18.0) 08/02/22 05:11 Hct 43.1 % (42.0-54.0) 08/02/22 05:11 MCV 88.2 fL (80.0-100.0) 08/02/22 05:11 MCH 29.0 pg (27.0-34.0) 08/02/22 05:11 MCHC 32.8 g/dL (33.0-35.0) L 08/02/22 05:11 RDW 15.8 % (11.6-16.5) 08/02/22 05:11 Plt Count 237 X10^3/uL (150.0-450.0) 08/02/22 05:11 MPV 8.5 fL (7.4-11.0) 08/02/22 05:11 Neut % (Auto) 71.1 % (42.0-75.0) 08/02/22 05:11 Lymph % (Auto) 13.8 % (21.0-51.0) L 08/02/22 05:11 Mcdonald % (Auto) 11.1 % (0.0-13.0) 08/02/22 05:11 Eos % (Auto) 2.8 % (0.9-2.9) 08/02/22 05:11 Baso % (Auto) 1.2 % (0.2-1.0) H 08/02/22 05:11 Neut # (Auto) 6.9 x10^3/uL (2.2-4.8) H 08/02/22 05:11 Lymph # (Auto) 1.3 X10^3/uL (1.3-2.9) 08/02/22 05:11 Mcdonald # (Auto) 1.1 x10^3/uL (0.3-0.8) H 08/02/22 05:11 Eos # (Auto) 0.3 x10^3/uL (0.0-0.2) H 08/02/22 05:11 Baso # (Auto) 0.1 X10^3/uL (0.0-0.1) 08/02/22 05:11 Absolute Nucleated RBC 0.0 /100WBC 08/02/22 05:11 ESR 20 MM/HOUR (0-15) H 08/01/22 04:50 Sodium 140 mmol/L (136-145) 08/02/22 05:11 Corrected Sodium TNP 08/02/22 05:11 Potassium 4.2 mmol/L (3.5-5.1) 08/02/22 05:11 Chloride 102 mmol/L (98-107) 08/02/22 05:11 Carbon Dioxide 33.9 mmol/L (21-32) H 08/02/22 05:11 BUN 14 mg/dL (7-18) 08/02/22 05:11 Creatinine 0.76 mg/dL (0.70-1.30) 08/02/22 05:11 Est GFR (MDRD) Af Amer > 60 (>60) 08/02/22 05:11 Est GFR (MDRD) Non-Af > 60 (>60) 08/02/22 05:11 Glucose 93 mg/dL (65-99) 08/02/22 05:11 POC Glucose (mg/dL) 95 mg/dL (65-99) 08/02/22 05:47 Calcium 8.4 mg/dL (8.5-10.1) L 08/02/22 05:11 Corrected Calcium 9.4 mg/dL (8.5-10.1) 08/02/22 05:11 Magnesium 1.9 mg/dL (2.0-2.9) L 08/02/22 05:11 Total Bilirubin 0.30 mg/dL (0.2-1.0) 08/02/22 05:11 AST 12 Units/L (15-37) L 08/02/22 05:11 ALT 14 Units/L (12-78) 08/02/22 05:11 Alkaline Phosphatase 46 Units/L (46-116) 08/02/22 05:11 Troponin I High Sens 12.5 ng/L (4.0-60.0) 07/28/22 16:25 C-Reactive Protein 2.70 mg/L (0-3.0) 08/01/22 04:50 B-Natriuretic Peptide 250 pg/mL (0-79) H 08/01/22 04:50 Total Protein 6.5 g/dL (6.4-8.2) 08/02/22 05:11 Albumin 2.8 g/dL (3.4-5.0) L 08/02/22 05:11 Globulin 3.7 g/dL (2.5-4.5) 08/02/22 05:11 Albumin/Globulin Ratio 0.8 Ratio (1.1-2.1) L 08/02/22 05:11 Plan (1) CHF exacerbation: Status: Acute Plan: Echo: EF 13% consult cardiology (2) Cellulitis: Status: Acute Plan: Continue IV Zosyn and IV Zyvox for empiric coverage of MRSA. (3) Leg edema: Status: Acute (4) Dyspnea: Status: Acute (5) Uncontrolled type 2 diabetes mellitus: Status: Acute Qualifiers: Glycemic state: with hyperglycemia Qualified Code(s): E11.65 - Type 2 diabetes mellitus with hyperglycemia (6) Benign hypertension: Status: None (7) Hyperlipidemia: Status: None
--- NOTE | 2022-08-02 08:49 | PCM.PROG ---
Progress Note Progress Note for Day of Date of Exam: 08/02/22 Subjective Subjective: Patient is a 56y/o male with uncontrolled diabetes complicated with neuropathy, HLD and chronic pain admitted for new onset CHF exacerbation and lower extremity cellulitis. This morning he is sitting in recliner. No acute events overnight. Reports some improvement in his lower extremity edema but still "feels tight". Labs/imaging: Wbc 9.8, Hgb 14.2, Plt 237, Na 140, K 4.2, Creatinine 0.76, Glucose 93. Pt has vitals as per protocol, SSI, and is receiving Zosyn and Zyvox for lower extremity cellulitis. IV lasix 40mg BID daily. Home medications have been resumed. Diabetic diet. Keep both legs elevated. Daily wt, strict I&Os. Echo has revealed EF:13%. Cardiology-Dr Evans has been consulted and will see patient tomorrow morning. Will start entresto. Otherwise, continue with current treatment plan. Continue to monitor and follow up labs/imaging. Past Medical Family Social History Allergies: Allergies No Known Drug Allergies Allergy (Unknown, Verified 07/28/22 16:32) Onset Date: 11/14/2019 Review of Systems ROS changes noted: see HPI Vital Signs and I&O's Vital Signs: Temperature 97.9 F Pulse Rate [Left] 90 Pulse Rate 90 Respiratory Rate 18 Blood Pressure [Right Arm] 130/77 Blood Pressure [Left Arm] 132/80 Blood Pressure 161/91 O2 Sat by Pulse Oximetry 94 Intake and Output: Intake & Output 07/30/22 07/31/22 08/01/22 08/02/22 23:59 23:59 23:59 23:59 Intake Total 2380 / 2380 2249 / 2249 2570 / 2570 487 / 487 Output Total 1950 / 1950 700 / 700 1550 / 1550 Balance 430 / 430 1549 / 1549 1020 / 1020 487 / 487 Physical Exam Oriented: Normal Eyes: Normal Ear: Normal Nose: Normal Throat: Normal Respiratory: Normal Cardiovascular: Normal and Edema (2+ pitting edema both LE) Auscultation: Bowel Sounds: Normal Tenderness: Normal Musculoskeletal: Right, Left, Leg (edema, erythematous,), Ankle and Swelling Speech Pattern: Clear and Appropriate Laboratory and Diagnostics Result Diagrams: 08/02/22 05:11 08/02/22 05:11 Labs: 07/29/22 21:18 Leg - Right Wound Gram Stain - Final 07/29/22 21:18 Leg - Right Wound Culture - Preliminary Staphylococcus Aureus 07/29/22 21:18 Leg - Left Wound Gram Stain - Final 07/29/22 21:18 Leg - Left Wound Culture - Preliminary Staphylococcus Aureus Laboratory WBC 9.8 X10^3/uL (3.6-10.0) 08/02/22 05:11 RBC 4.89 X10^6/uL (4.7-6.0) 08/02/22 05:11 Hgb 14.2 g/dL (13.5-18.0) 08/02/22 05:11 Hct 43.1 % (42.0-54.0) 08/02/22 05:11 MCV 88.2 fL (80.0-100.0) 08/02/22 05:11 MCH 29.0 pg (27.0-34.0) 08/02/22 05:11 MCHC 32.8 g/dL (33.0-35.0) L 08/02/22 05:11 RDW 15.8 % (11.6-16.5) 08/02/22 05:11 Plt Count 237 X10^3/uL (150.0-450.0) 08/02/22 05:11 MPV 8.5 fL (7.4-11.0) 08/02/22 05:11 Neut % (Auto) 71.1 % (42.0-75.0) 08/02/22 05:11 Lymph % (Auto) 13.8 % (21.0-51.0) L 08/02/22 05:11 Kane % (Auto) 11.1 % (0.0-13.0) 08/02/22 05:11 Eos % (Auto) 2.8 % (0.9-2.9) 08/02/22 05:11 Baso % (Auto) 1.2 % (0.2-1.0) H 08/02/22 05:11 Neut # (Auto) 6.9 x10^3/uL (2.2-4.8) H 08/02/22 05:11 Lymph # (Auto) 1.3 X10^3/uL (1.3-2.9) 08/02/22 05:11 Kane # (Auto) 1.1 x10^3/uL (0.3-0.8) H 08/02/22 05:11 Eos # (Auto) 0.3 x10^3/uL (0.0-0.2) H 08/02/22 05:11 Baso # (Auto) 0.1 X10^3/uL (0.0-0.1) 08/02/22 05:11 Absolute Nucleated RBC 0.0 /100WBC 08/02/22 05:11 ESR 20 MM/HOUR (0-15) H 08/01/22 04:50 Sodium 140 mmol/L (136-145) 08/02/22 05:11 Corrected Sodium TNP 08/02/22 05:11 Potassium 4.2 mmol/L (3.5-5.1) 08/02/22 05:11 Chloride 102 mmol/L (98-107) 08/02/22 05:11 Carbon Dioxide 33.9 mmol/L (21-32) H 08/02/22 05:11 BUN 14 mg/dL (7-18) 08/02/22 05:11 Creatinine 0.76 mg/dL (0.70-1.30) 08/02/22 05:11 Est GFR (MDRD) Af Amer > 60 (>60) 08/02/22 05:11 Est GFR (MDRD) Non-Af > 60 (>60) 08/02/22 05:11 Glucose 93 mg/dL (65-99) 08/02/22 05:11 POC Glucose (mg/dL) 95 mg/dL (65-99) 08/02/22 05:47 Calcium 8.4 mg/dL (8.5-10.1) L 08/02/22 05:11 Corrected Calcium 9.4 mg/dL (8.5-10.1) 08/02/22 05:11 Magnesium 1.9 mg/dL (2.0-2.9) L 08/02/22 05:11 Total Bilirubin 0.30 mg/dL (0.2-1.0) 08/02/22 05:11 AST 12 Units/L (15-37) L 08/02/22 05:11 ALT 14 Units/L (12-78) 08/02/22 05:11 Alkaline Phosphatase 46 Units/L (46-116) 08/02/22 05:11 Troponin I High Sens 12.5 ng/L (4.0-60.0) 07/28/22 16:25 C-Reactive Protein 2.70 mg/L (0-3.0) 08/01/22 04:50 B-Natriuretic Peptide 250 pg/mL (0-79) H 08/01/22 04:50 Total Protein 6.5 g/dL (6.4-8.2) 08/02/22 05:11 Albumin 2.8 g/dL (3.4-5.0) L 08/02/22 05:11 Globulin 3.7 g/dL (2.5-4.5) 08/02/22 05:11 Albumin/Globulin Ratio 0.8 Ratio (1.1-2.1) L 08/02/22 05:11 Plan (1) CHF exacerbation: Status: Acute Plan: Echo: EF 13% consult cardiology (2) Cellulitis: Status: Acute Plan: Continue IV Zosyn and IV Zyvox for empiric coverage of MRSA. (3) Leg edema: Status: Acute (4) Dyspnea: Status: Acute (5) Uncontrolled type 2 diabetes mellitus: Status: Acute Qualifiers: Glycemic state: with hyperglycemia Qualified Code(s): E11.65 - Type 2 diabetes mellitus with hyperglycemia (6) Benign hypertension: Status: None (7) Hyperlipidemia: Status: None
[2022-08-02] MEDS: PROVENTIL NEB TX 0.083% 2.5MG/ 3ML NEB SCH ×2 (09:15→20:33)
[2022-08-02] MEDS: PULMICORT NEB TX 0.5 MG NEB SCH ×2 (09:15→20:33)
[2022-08-02] MEDS: ZYVOX 600MG IV 600 MG/300 ML BAG IV SCH (10:06)
[2022-08-02] MEDS: ENTRESTO 24/26 MG TABLET PO SCH ×2 (10:06→20:42)
--- NOTE | 2022-08-02 13:47 | RAD ---
HISTORYCHFSTUDYCHEST, 1 [id number]/13/2023FINDINGSThe trachea is midline. The cardiac silhouette is enlarged with a tortuous thoracic aorta . Increased interstitial changes with prominent vascular markings are observed consistent with underlying CHF. Bibasilar infiltrates are again observed consistent with pulmonary edema and layering pleural effusion. The bony thorax is unremarkable.IMPRESSIONBibasilar infiltrates consistent with layering pleural effusions and associated infiltrates. Findings are compatible with CHF and associated pulmonary edema.Electronically signed by: NETTE ZARATE (August 02, 2022 13:46:33)
[2022-08-02] MEDS: MAGNESIUM SULFATE 1 GRAM/100 mL PREMIX 1 G/100 ML BAG IV PRN ×2 (14:10→17:32)
[2022-08-02] MEDS ORDERED: CLEOCIN 600 MG IV PREMIX 600 MG/50 ML BAG IV SCH (15:00)
[2022-08-03] MEDS: CLEOCIN PO SCH ×2 (05:36→13:39)
[2022-08-03] MEDS: NEURONTIN TAB 600 MG PO SCH ×2 (05:36→13:39)
[2022-08-03] MEDS: NovoLIN R (or HumuLIN R) SC PRN (05:55)
[2022-08-03 06:07] LABS: BASOPHILS # (AUTO) 0.1 X10^3/uL (0.0-0.1); BASOPHILS % (AUTO) 1.3 % (0.2-1.0); EOSINOPHILS # (AUTO) 0.3 x10^3/uL (0.0-0.2); EOSINOPHILS % (AUTO) 4.2 % (0.9-2.9); HEMATOCRIT 40.6 % (42.0-54.0); HEMOGLOBIN 13.4 g/dL (13.5-18.0); LYMPHOCYTES # (AUTO) 1.4 X10^3/uL (1.3-2.9); LYMPHOCYTES % (AUTO) 18.7 % (21.0-51.0); MEAN CORPUSCULAR HEMOGLOBIN 29.1 pg (27.0-34.0); MEAN CORPUSCULAR VOLUME 88.2 fL (80.0-100.0); MEAN PLATELET VOLUME 8.7 fL (7.4-11.0); MONOCYTES # (AUTO) 0.9 x10^3/uL (0.3-0.8); NEUTROPHILS # (AUTO) 4.9 x10^3/uL (2.2-4.8); NEUTROPHILS % (AUTO) 63.8 % (42.0-75.0); PLATELET COUNT 220 X10^3/uL (150.0-450.0); RED CELL DISTRIBUTION WIDTH 15.6 % (11.6-16.5); WHITE BLOOD COUNT 7.7 X10^3/uL (3.6-10.0)
[2022-08-03 06:24] LABS: ALANINE AMINOTRANSFERASE 13 Units/L (12-78); ALBUMIN 2.6 g/dL (3.4-5.0); ALKALINE PHOSPHATASE 45 Units/L (46-116); ASPARTATE AMINO TRANSFERASE 10 Units/L (15-37); BLOOD UREA NITROGEN 14 mg/dL (7-18); CALCIUM 8.2 mg/dL (8.5-10.1); CHLORIDE 101 mmol/L (98-107); COR CA(FOR HYPOALB) 9.3 mg/dL (8.5-10.1); COR NA(FOR HYPERGLY) 139 mmol/L (136-145); CREATININE 0.82 mg/dL (0.70-1.30); GLUCOSE 172 mg/dL (65-99); POTASSIUM 3.6 mmol/L (3.5-5.1); SODIUM 137 mmol/L (136-145); eGFR NON BLACK RACES > 60 (>60)
[2022-08-03] MEDS ORDERED: GLUCOPHAGE ONE (06:57)
[2022-08-03] MEDS: LASIX IVP SCH ×2 (07:42→08:18)
[2022-08-03] MEDS: GLUCOPHAGE PO SCH ×2 (07:43→08:18)
[2022-08-03] MEDS: ENTRESTO 24/26 MG TABLET PO SCH ×2 (07:43→08:18)
[2022-08-03] MEDS: GLUCOTROL XL 24-HR PO SCH ×2 (07:43→08:18)
[2022-08-03] MEDS: K-DUR TAB 20 MEQ PO SCH ×2 (07:43→08:18)
[2022-08-03] MEDS: ASPIRIN EC 81 MG PO SCH ×2 (07:44→08:17)
[2022-08-03] MEDS ORDERED: K-DUR TAB 20 MEQ PO ONE (09:00)
[2022-08-03] MEDS ORDERED: COREG TAB 6.25 MG PO SCH (09:00)
[2022-08-03] MEDS ORDERED: ZAROXOLYN PO ONE (09:00)
[2022-08-03] MEDS: PROVENTIL NEB TX 0.083% 2.5MG/ 3ML NEB SCH (09:27)
[2022-08-03] MEDS: PULMICORT NEB TX 0.5 MG NEB SCH (09:27)
--- NOTE | 2022-08-03 14:33 | RAD ---
HISTORYCHF FOLLOW UPSTUDYCHEST, 1 VIEWCOMPARISONChest x-ray 08/02/2022FINDINGSThe heart is enlarged and stable. Mild central pulmonary vascular congestion. There are moderate bilateral pleural effusions with associated atelectasis. No pneumothorax. No acute osseous abnormality.IMPRESSIONNo significant interval change when compared to prior..Electronically signed by: Blake Dang (August 03, 2022 14:32:43)
[2022-08-03] MEDS: NORCO 10/325 TAB PO PRN (15:34)
[2022-08-03 16:14] VITALS: BP 143/87
--- NOTE | 2022-08-03 16:30 | PCM.PROG ---
Progress Note Progress Note for Day of Date of Exam: 07/31/22 Subjective Subjective: Patient is a 56y/o male with uncontrolled diabetes complicated with neuropathy, HLD and chronic pain admitted for CHF exacerbation and lower extremity cellulitis. This morning he is sitting on side of bed, still complaining of significant edema in his bilateral lower extremities. No acute ev ents overnight. Labs/imaging: Wbc 9.1, Hgb 15.1, Plt 235, Na 141, K 4.0, Creatinine 0.75, Glucose 241, Troponin negative, BNP 277. CXR was obtained that revealed: Findings suggestive of congestive heart failure with pulmonary edema and pleural effusions. Pt has vitals as per protocol, SSI, and is receiving Zosyn for possible LE cellulitis. IV lasix 40mg daily. Home medications have been resumed. Diabetic diet. Keep both legs elevated. Daily wt, strict I&Os. Bilateral lower extremity ultrasound ordered to rule out DVT and Echo ordered to evaluate cardiac function. Otherwise, continue with current treatment plan. Continue to monitor and follow up labs/imaging. Monday, 30 Jul 2022 Patient is lying in bed comfortably this morning. He has no new complaints at this time. His labs are normal overall. Doppler ultrasound of the left lower extremity showed no DVT. Repeat CBC and CMP in a.m. No change in treatment at this time. Monday, 31 Jul 2022. Patient is sitting in his chair comfortably this morning. See that his legs are still edematous and warm. The marked area of erythema around the wound on the left anterior leg has not gotten any smaller. He currently is receiving Zosyn. I will go ahead and add IV Zyvox in case wound is infected with MRSA. I will check CRP, ESR today and tomorrow. Check brain natriuretic peptide today and tomorrow also. Past Medical Family Social History Allergies: Allergies No Known Drug Allergies Allergy (Unknown, Verified 07/28/22 16:32) Onset Date: 11/14/2019 Review of Systems ROS: No change since H&P Vital Signs and I&O's Vital Signs: Temperature 97.6 F Pulse Rate [Left] 92 Pulse Rate 86 Respiratory Rate 20 Blood Pressure [Left Arm] 174/87 Blood Pressure 161/91 O2 Sat by Pulse Oximetry 98 Intake and Output: Intake & Output 07/29/22 07/30/22 07/31/22 08/01/22 11:59 11:59 11:59 11:59 Intake Total 340 / 340 1351 / 1351 2123 / 2123 316 / 316 Output Total 1200 / 1200 830 / 830 1400 / 1400 Balance -860 / -860 521 / 521 723 / 723 316 / 316 Physical Exam Oriented: Normal Eyes: Normal Ear: Normal Nose: Normal Throat: Normal Respiratory: Normal Cardiovascular: Normal and Edema (3+ pitting edema both LE) Auscultation: Bowel Sounds: Normal Tenderness: Normal Musculoskeletal: Right, Left, Leg (edema, erythematous, open blisters ), Ankle and Swelling Speech Pattern: Clear and Appropriate Laboratory and Diagnostics Result Diagrams: 08/03/22 05:07 08/03/22 05:07 Labs: 07/29/22 21:18 Leg - Right Wound Gram Stain - Final 07/29/22 21:18 Leg - Right Wound Culture - Preliminary 07/29/22 21:18 Leg - Left Wound Gram Stain - Final 07/29/22 21:18 Leg - Left Wound Culture - Preliminary Laboratory WBC 7.8 X10^3/uL (3.6-10.0) 07/31/22 05:24 RBC 4.81 X10^6/uL (4.7-6.0) 07/31/22 05:24 Hgb 14.1 g/dL (13.5-18.0) 07/31/22 05:24 Hct 42.7 % (42.0-54.0) 07/31/22 05:24 MCV 89.0 fL (80.0-100.0) 07/31/22 05:24 MCH 29.4 pg (27.0-34.0) 07/31/22 05:24 MCHC 33.1 g/dL (33.0-35.0) 07/31/22 05:24 RDW 15.7 % (11.6-16.5) 07/31/22 05:24 Plt Count 221 X10^3/uL (150.0-450.0) 07/31/22 05:24 MPV 8.6 fL (7.4-11.0) 07/31/22 05:24 Neut % (Auto) 65.0 % (42.0-75.0) 07/31/22 05:24 Lymph % (Auto) 19.3 % (21.0-51.0) L 07/31/22 05:24 Victoria % (Auto) 10.6 % (0.0-13.0) 07/31/22 05:24 Eos % (Auto) 3.7 % (0.9-2.9) H 07/31/22 05:24 Baso % (Auto) 1.4 % (0.2-1.0) H 07/31/22 05:24 Neut # (Auto) 5.1 x10^3/uL (2.2-4.8) H 07/31/22 05:24 Lymph # (Auto) 1.5 X10^3/uL (1.3-2.9) 07/31/22 05:24 Victoria # (Auto) 0.8 x10^3/uL (0.3-0.8) 07/31/22 05:24 Eos # (Auto) 0.3 x10^3/uL (0.0-0.2) H 07/31/22 05:24 Baso # (Auto) 0.1 X10^3/uL (0.0-0.1) 07/31/22 05:24 Absolute Nucleated RBC 0.1 /100WBC 07/31/22 05:24 Sodium 141 mmol/L (136-145) 07/31/22 05:24 Corrected Sodium 144 mmol/L (136-145) 07/31/22 05:24 Potassium 3.7 mmol/L (3.5-5.1) 07/31/22 05:24 Chloride 103 mmol/L (98-107) 07/31/22 05:24 Carbon Dioxide 32.3 mmol/L (21-32) H 07/31/22 05:24 BUN 10 mg/dL (7-18) 07/31/22 05:24 Creatinine 0.73 mg/dL (0.70-1.30) 07/31/22 05:24 Est GFR (MDRD) Af Amer > 60 (>60) 07/31/22 05:24 Est GFR (MDRD) Non-Af > 60 (>60) 07/31/22 05:24 Glucose 223 mg/dL (65-99) H 07/31/22 05:24 POC Glucose (mg/dL) 125 mg/dL (65-99) H 07/31/22 12:17 Calcium 8.0 mg/dL (8.5-10.1) L 07/31/22 05:24 Corrected Calcium 9.2 mg/dL (8.5-10.1) 07/31/22 05:24 Total Bilirubin 0.20 mg/dL (0.2-1.0) 07/31/22 05:24 AST 10 Units/L (15-37) L 07/31/22 05:24 ALT 14 Units/L (12-78) 07/31/22 05:24 Alkaline Phosphatase 51 Units/L (46-116) 07/31/22 05:24 Troponin I High Sens 12.5 ng/L (4.0-60.0) 07/28/22 16:25 B-Natriuretic Peptide 203 pg/mL (0-79) H 07/30/22 05:37 Total Protein 5.7 g/dL (6.4-8.2) L 07/31/22 05:24 Albumin 2.5 g/dL (3.4-5.0) L 07/31/22 05:24 Globulin 3.2 g/dL (2.5-4.5) 07/31/22 05:24 Albumin/Globulin Ratio 0.8 Ratio (1.1-2.1) L 07/31/22 05:24 Plan (1) CHF exacerbation: Status: Acute Plan: Follow-up brain natriuretic peptide levels. (2) Cellulitis: Status: Acute Narrative Support Text: The wound marked with a border around the redness shows no decreasing in the size of the erythema at this time. Plan: Continue IV Zosyn and I am adding IV Zyvox for empiric coverage of MRSA. (3) Leg edema: Status: Acute (4) Dyspnea: Status: Acute (5) Uncontrolled type 2 diabetes mellitus: Status: Acute Qualifiers: Glycemic state: with hyperglycemia Qualified Code(s): E11.65 - Type 2 diabetes mellitus with hyperglycemia (6) Benign hypertension: Status: None (7) Hyperlipidemia: Status: None
--- NOTE | 2022-08-05 07:49 | W.DIS.FURT ---
Summary of Discharge Discharge Summary of Date Date of Exam: 08/03/22 Admission Date Date of Admission: 07/28/22 Admission Diagnosis Hospital Course: Patient is a 56y/o male with uncontrolled diabetes complicated with neuropathy, HLD and chronic pain admitted for new onset CHF exacerbation(Echo has revealed EF:13%) and lower extremity cellulitis. This morning cardiology consulted for evaluation. After discussing with patient importance of further evaluation and heart catheterization, it is in best interest of patient to be transferred to [facility] in [place], [place] for further cardiac workup. Pt was transferred to tertiary care center in stable condition. Vital Signs: Vital Signs (72 hours) 08/01/22 09:02 08/01/22 09:02 08/01/22 12:00 Temperature 97.7 F Pulse Rate 90 Pulse Rate [Left] 94 H Respiratory Rate 20 Blood Pressure [Right Arm] 141/83 O2 Sat by Pulse Oximetry 98 98 Oxygen Delivery Method Nasal Cannula Nasal Cannula Oxygen Flow Rate 2 2 FIO2% 28 08/01/22 16:00 08/01/22 19:00 08/01/22 20:00 Temperature 98.0 F 97.8 F Pulse Rate Pulse Rate [Left] 89 92 H Respiratory Rate 22 18 Blood Pressure [Right Arm] 138/80 140/81 O2 Sat by Pulse Oximetry 96 96 Oxygen Delivery Method Nasal Cannula Nasal Cannula Nasal Cannula Oxygen Flow Rate 2 2 2 FIO2% 08/02/22 00:00 08/01/22 20:58 08/01/22 20:58 Temperature 97.9 F Pulse Rate 90 Pulse Rate [Left] 95 H Respiratory Rate 18 Blood Pressure [Right Arm] 159/85 O2 Sat by Pulse Oximetry 98 97 Oxygen Delivery Method Nasal Cannula Nasal Cannula Oxygen Flow Rate 2 2 FIO2% 28 08/02/22 04:00 08/02/22 05:20 08/02/22 06:20 Temperature 97.8 F Pulse Rate Pulse Rate [Left] 88 Respiratory Rate 18 20 20 Blood Pressure [Right Arm] 127/78 O2 Sat by Pulse Oximetry 95 Oxygen Delivery Method Nasal Cannula Oxygen Flow Rate 2 FIO2% 08/02/22 08:00 08/02/22 07:00 08/02/22 09:15 Temperature 97.9 F Pulse Rate Pulse Rate [Left] 90 Respiratory Rate 18 Blood Pressure [Right Arm] 130/77 O2 Sat by Pulse Oximetry 94 L Oxygen Delivery Method Nasal Cannula Nasal Cannula Nasal Cannula Oxygen Flow Rate 2 2 2 FIO2% 28 08/02/22 09:15 08/02/22 12:00 08/02/22 14:46 Temperature 97.5 F L Pulse Rate 88 Pulse Rate [Left] 91 H Respiratory Rate 18 18 Blood Pressure [Right Arm] 146/81 O2 Sat by Pulse Oximetry 94 L 94 L Oxygen Delivery Method Nasal Cannula Oxygen Flow Rate 2 FIO2% 08/02/22 16:00 08/02/22 15:46 08/02/22 20:00 Temperature 97.6 F 97.4 F L Pulse Rate Pulse Rate [Left] 83 80 Respiratory Rate 18 18 20 Blood Pressure [Right Arm] 139/78 138/86 O2 Sat by Pulse Oximetry 97 97 Oxygen Delivery Method Nasal Cannula Nasal Cannula Oxygen Flow Rate 2 2 FIO2% 08/02/22 20:32 08/02/22 20:33 08/02/22 19:00 Temperature Pulse Rate 81 Pulse Rate [Left] Respiratory Rate Blood Pressure [Right Arm] O2 Sat by Pulse Oximetry 93 L Oxygen Delivery Method Nasal Cannula Nasal Cannula Oxygen Flow Rate 2 2 FIO2% 28 08/02/22 23:55 08/03/22 04:00 08/03/22 07:00 Temperature 97.5 F L 97.6 F Pulse Rate Pulse Rate [Left] 83 75 Respiratory Rate 21 21 Blood Pressure [Right Arm] 139/67 133/76 O2 Sat by Pulse Oximetry 97 94 L Oxygen Delivery Method Nasal Cannula Nasal Cannula Nasal Cannula Oxygen Flow Rate 2 2 2 FIO2% 08/03/22 08:00 08/03/22 09:27 08/03/22 12:00 Temperature 97.6 F 97.6 F Pulse Rate Pulse Rate [Left] 80 88 Respiratory Rate 18 20 Blood Pressure [Right Arm] 139/87 161/79 O2 Sat by Pulse Oximetry 97 96 Oxygen Delivery Method Nasal Cannula Nasal Cannula Nasal Cannula Oxygen Flow Rate 2 2 2 FIO2% 28 08/03/22 15:34 08/03/22 16:00 Temperature 97.6 F Pulse Rate Pulse Rate [Left] 83 Respiratory Rate 20 18 Blood Pressure [Right Arm] 143/87 O2 Sat by Pulse Oximetry 96 Oxygen Delivery Method Nasal Cannula Oxygen Flow Rate 2 FIO2% Labs: Laboratory Last Values WBC 7.7 X10^3/uL (3.6-10.0) 08/03/22 05:07 RBC 4.60 X10^6/uL (4.7-6.0) L 08/03/22 05:07 Hgb 13.4 g/dL (13.5-18.0) L 08/03/22 05:07 Hct 40.6 % (42.0-54.0) L 08/03/22 05:07 MCV 88.2 fL (80.0-100.0) 08/03/22 05:07 MCH 29.1 pg (27.0-34.0) 08/03/22 05:07 MCHC 33.0 g/dL (33.0-35.0) 08/03/22 05:07 RDW 15.6 % (11.6-16.5) 08/03/22 05:07 Plt Count 220 X10^3/uL (150.0-450.0) 08/03/22 05:07 MPV 8.7 fL (7.4-11.0) 08/03/22 05:07 Neut % (Auto) 63.8 % (42.0-75.0) 08/03/22 05:07 Lymph % (Auto) 18.7 % (21.0-51.0) L 08/03/22 05:07 Cowley % (Auto) 12.0 % (0.0-13.0) 08/03/22 05:07 Eos % (Auto) 4.2 % (0.9-2.9) H 08/03/22 05:07 Baso % (Auto) 1.3 % (0.2-1.0) H 08/03/22 05:07 Neut # (Auto) 4.9 x10^3/uL (2.2-4.8) H 08/03/22 05:07 Lymph # (Auto) 1.4 X10^3/uL (1.3-2.9) 08/03/22 05:07 [place] # (Auto) 0.9 x10^3/uL (0.3-0.8) H 08/03/22 05:07 Eos # (Auto) 0.3 x10^3/uL (0.0-0.2) H 08/03/22 05:07 Baso # (Auto) 0.1 X10^3/uL (0.0-0.1) 08/03/22 05:07 Absolute Nucleated RBC 0.0 /100WBC 08/03/22 05:07 ESR 20 MM/HOUR (0-15) H 08/01/22 04:50 Sodium 137 mmol/L (136-145) 08/03/22 05:07 Corrected Sodium 139 mmol/L (136-145) 08/03/22 05:07 Potassium 3.6 mmol/L (3.5-5.1) 08/03/22 05:07 Chloride 101 mmol/L (98-107) 08/03/22 05:07 Carbon Dioxide 33.0 mmol/L (21-32) H 08/03/22 05:07 BUN 14 mg/dL (7-18) 08/03/22 05:07 Creatinine 0.82 mg/dL (0.70-1.30) 08/03/22 05:07 Est GFR (MDRD) Af Amer > 60 (>60) 08/03/22 05:07 Est GFR (MDRD) Non-Af > 60 (>60) 08/03/22 05:07 Glucose 172 mg/dL (65-99) H 08/03/22 05:07 POC Glucose (mg/dL) 176 mg/dL (65-99) H 08/03/22 10:42 Calcium 8.2 mg/dL (8.5-10.1) L 08/03/22 05:07 Corrected Calcium 9.3 mg/dL (8.5-10.1) 08/03/22 05:07 Magnesium 1.9 mg/dL (2.0-2.9) L 08/02/22 05:11 Total Bilirubin 0.30 mg/dL (0.2-1.0) 08/03/22 05:07 AST 10 Units/L (15-37) L 08/03/22 05:07 ALT 13 Units/L (12-78) 08/03/22 05:07 Alkaline Phosphatase 45 Units/L (46-116) L 08/03/22 05:07 Troponin I High Sens 12.5 ng/L (4.0-60.0) 07/28/22 16:25 C-Reactive Protein 2.70 mg/L (0-3.0) 08/01/22 04:50 B-Natriuretic Peptide 250 pg/mL (0-79) H 08/01/22 04:50 Total Protein 6.0 g/dL (6.4-8.2) L 08/03/22 05:07 Albumin 2.6 g/dL (3.4-5.0) L 08/03/22 05:07 Globulin 3.4 g/dL (2.5-4.5) 08/03/22 05:07 Albumin/Globulin Ratio 0.8 Ratio (1.1-2.1) L 08/03/22 05:07 Vitamin D 25-Hydroxy 6 ng/mL (30-80) L 07/31/22 05:24 Reason For Visit: CHF FAILED OUTPATIENT TREATMENT Discharge Date Discharge Date: 08/03/22 Discharge Diagnosis All Active Problems (Updated 08/03/22 @ 08:10 by Jeremy Machado) Hypoxemia (Acute) Cellulitis (Acute) CHF exacerbation (Acute) Dyspnea (Acute) Leg edema (Acute) Cutaneous wart (Acute) Abscess of groin, left (Acute) Uncontrolled type 2 diabetes mellitus (Acute) Plan of Treatment: Continue with present treatment and follow up plan. Pt is to keep follow up appointment as instructed and take medications as ordered. Discharge Medications Discharge Medications: No Known Drug Allergies Allergy (Unknown, Verified 07/28/22 16:32) Discharge Plan Discharge Plan Hospital Course: Patient is a 56y/o male with uncontrolled diabetes complicated with neuropathy, HLD and chronic pain admitted for new onset CHF exacerbation(Echo has revealed EF:13%) and lower extremity cellulitis. This morning cardiology consulted for evaluation. After discussing with patient importance of further evaluation and heart catheterization, it is in best interest of patient to be transferred to [facility] in [place], [place] for further cardiac workup. Pt was transferred to tertiary care center in stable condition. Patient Disposition: 01 HOME, SELF-CARE Condition: Stable Health Concerns: Post Hospitalization: new medications and changes needed to prevent readmission or further decline. Pt educated and given instructions on all concerns. Care Plan Goals: Problem: Cardiac Complications Goal: Early Recognition of cardiac complications for prompt intervention Instructions: Follow provided instructions. Follow up with primary physician as directed. Contact primary care physician or report to the closest Emergency Room if condition worsens. Plan of Treatment: Continue with present treatment and follow up plan. Pt is to keep follow up appointment as instructed and take medications as ordered. Prescriptions: No Action gabapentin 600 mg tablet 600 mg PO TID Qty: 90 2RF metformin 1,000 mg tablet 1,000 mg PO BID 30 Days Qty: 60 2RF Rx Instructions: FreeTextSi (one) Tablet two times daily; Refills: 2; Provider: Porfirio Sands fenofibrate nanocrystallized 145 mg tablet 1 tab PO QDAY 30 Days Rx Instructions: FreeTextSi (one) Tablet daily; Refills: 2; Provider: Porfirio Sands glipizide 5 mg tablet extended release 24hr 1 tab PO QDAY 30 Days Rx Instructions: FreeTextSi (one) Tablet daily; Refills: 2; Provider: Porfirio Sands insulin asp prt-insulin aspart [Novolog Mix 70-30FlexPen U-100] 100 unit/mL (70-30) insulin pen 22 unit subcut BID Qty: 15 2RF Follow ups/Referrals Follow ups/Referrals: Matteo Evans [STAFF PHYSICIAN] - 1 WEEK Shavon Monroy [Primary Care Provider] - 1 WEEK Instructions Instructions: Heart Failure, Self Care, [id number], Home Oxygen Use, Adult, Cellulitis, Adult, [id number] Activity Restrictions/Additional Instructions: Home Oxygen Stand Alone Forms: Excuse From Work or School
== END 2022-08-03 17:05 | disposition home or self-care (01) | DRG 292 ==
LOC: MED/SURG
PROVIDERS: ADMIT Internal Medicine; ATTEND Internal Medicine